=== PATIENT | male | born 1965 | race Caucasian/White ===

== ENCOUNTER 2019-02-24 12:52 | Inpatient (IN) | payer OTHER ==
[2019-02-24 17:16] VITALS: BMI 26.1
--- NOTE | 2019-02-24 18:18 | HP ---
COWS - Scale Resting Pulse: 0= [place] 80 or Below Sweatin=Flushed/Facial Moisture Restless Observation: 1= Difficult to Sit Still Pupil Size: 2= Moderately Dilated (Pupils = 4 mm) Bone or Joint Aches: 1= Mild Discomfort Runny Nose/ Eye Tearin= Nasal Congestion GI Upset > 30mins: 1= Stomach Cramp (w/ slight nausea) Tremor Observation: 4= Gross Tremor/Twitching Yawning Observation: 0= None Anxiety or Irritability: 2=Irritable/Anxious Goose Flesh Skin: 0=Smooth Skin COWS Score: 14 CIWA Score - Admission Criteria OASAS Guidelines: Admission for Medically Managed Detox: Requires at least one of the followin. CIWA greater than 12 2. Seizures within the past 24 hours 3. Delirium tremens within the past 24 hours 4. Hallucinations within the past 24 hours 5. Acute intervention needed for co occurring medical disorder 6. Acute intervention needed for co occurring psychiatric disorder 7. Severe withdrawal that cannot be handled at a lower level of care (continued vomiting, continued diarrhea, abnormal vital signs) requiring intravenous medication and/or fluids 8. Admission ROS [facility] Chief Complaint: Here for heroin withdrawal. Allergies/Adverse Reactions: Allergies Allergy/AdvReac Type Severity Reaction Status Date / Time No Known Allergies Allergy Verified 02/24/19 17:04 History of Present Illness: This is the first admission for this 53 yom who states "I want to stop using heroin. I was trying to do on my own but was unable to." Heroin use since age 11. Stopped in 2010 at which time was using 5-6 bags ( incarcerated). Restarted 6 months ago and states uses 2 bags/day. (nasal). Last used 4 hours ago. Denies alcohol or other drugs. Nicotine use since age 7/10. Currently smokes 1PPD Denies seizures, blackouts, overdoses. PMHx: HIV +; MHHx: Anxious. Denies depression. Denies thoughts of harming self or others. Patient Name: Bryce Hudson Date: 1965 Address: [address] [place] [address] [address] [place] [address] Sex: Male Rx Written Rx Dispensed Drug Quantity Days Supply Prescriber Name 01/25/2019 01/25/2019 oxycodone-acetaminophen 5-325 mg tab 60 30 Rigo Louis MD 12/04/2018 12/08/2018 oxycodone-acetaminophen 5-325 mg tab 60 30 HeribertoRigo MD 10/29/2018 11/05/2018 oxycodone-acetaminophen 5-325 mg tab 60 30 HeribertoRigo MD 10/01/2018 10/02/2018 oxycodone-acetaminophen 5-325 mg tablet 60 30 HeribertoRigo MD 08/26/2018 08/31/2018 oxycodone-acetaminophen 5-325 mg tab 60 30 HeribertoRigo MD 07/29/2018 07/29/2018 oxycodone-acetaminophen 5-325 mg tablet 60 30 HeribertoRigo MD 06/29/2018 07/01/2018 oxycodone-acetaminophen 5-325 mg tablet 60 30 HeribertoRigo MD 05/25/2018 05/28/2018 oxycodone-acetaminophen 5-325 mg tablet 60 5 HeribertoRigo MD 04/24/2018 04/27/2018 oxycodone-acetaminophen 5-325 mg tablet 60 30 HeribertoRigo MD 03/27/2018 03/29/2018 oxycodone-acetaminophen 5-325 mg tablet 60 30 HeribertoRigo MD 02/19/2018 02/26/2018 oxycodone-acetaminophen 5-325 mg tablet 60 30 HeribertoRigo MD Exam Limitations: No Limitations - Ebola screening Have you traveled outside of the country in the last 21 days: No Have you had contact with anyone from an Ebola affected area: No Have you been sick,other than usual withdrawal symptoms: No (Denies recent exposure to measles) Do you have a fever: No - Review of Systems Constitutional: Changes in sleep (Difficulty falling asleep. Not on meds) EENT: reports: Blurred Vision, Nose Congestion Respiratory: reports: No Symptoms reported Cardiac: reports: No Symptoms Reported GI: reports: Abdominal cramping (w/ some nausea) : reports: No Symptoms Reported Musculoskeletal: reports: Back Pain (Chronic LBP x years. No pain at this time.) , Muscle Pain (aches) Integumentary: reports: No Symptoms Reported Neuro: reports: Numbness (Occ (R) arm falls asleep at night) Endocrine: reports: Increased Thirst Hematology: reports: No Symptoms Reported Psychiatric: reports: Judgement Intact, Orientated x3, Agitated, Anxious Patient History - PPD History Previous Implant?: Yes Documented Results: Negative w/proof Implanted On Prior [facility] Admission?: No PPD to be Administered?: Yes - Smoking Cessation Smoking history: Current every day smoker Have you smoked in the past 12 months: Yes Aproximately how many cigarettes per day: 20 Hx Chewing Tobacco Use: Yes Initiated information on smoking cessation: No 'Breaking Loose' booklet given: 02/24/19 - Substance & Tx. History Hx Alcohol Use: No Hx Substance Use: Yes Substance Use Type: Heroin Hx Substance Use Treatment: No - Substances abused Heroin Substance route: Inhalation Frequency: Daily Amount used: 1-2 bags Age of first use: 11 Date of last use: 02/24/19 Admission Physical Exam BHS - Vital Signs Vital Signs: Vital Signs - 24 hr 02/24/19 17:03 Temperature 97.9 F Pulse Rate 77 Respiratory 18 Rate Blood Pressure 120/66 - Physical General Appearance: Yes: Nourished, Sweating, Anxious (Increased facial moisture ) HEENTM: Yes: EOMI, Hearing grossly Normal, Normocephalic, Normal Voice, JOHN ( Pupils = 4 mm), Pharynx Normal Respiratory: Yes: Lungs Clear, Normal Breath Sounds, No Respiratory Distress Neck: Yes: No masses,lesions,Nodules, Supple Breast: Yes: Breast Exam Deferred Cardiology: Yes: Regular Rhythm, S1, S2, Bradycardia (HR: 58) Abdominal: Yes: Non Tender, Flat, Soft, Increased Bowel Sounds Genitourinary: Yes: Within Normal Limits Back: Yes: Normal Inspection Musculoskeletal: Yes: full range of Motion, Gait Steady Extremities: Yes: Normal Capillary Refill, Tremors (gross tremors) Neurological: Yes: vp research II-XII NML intact, Fully Oriented, Alert, Motor Strength 5/5, Normal Mood/Affect Integumentary: Yes: Normal Color, Warm Lymphatic: Yes: Within Normal Limits - Diagnostic (1) Opioid dependence with withdrawal Current Visit: Yes Status: Acute (2) Nicotine dependence, uncomplicated Current Visit: Yes Status: Acute Qualifiers: Nicotine product type: cigarettes Qualified Code(s): F17.210 - Nicotine dependence, cigarettes, uncomplicated (3) HIV (human immunodeficiency virus infection) Current Visit: Yes Status: Chronic Qualifiers: HIV symptom status: unspecified Qualified Code(s): B20 - Human immunodeficiency virus [HIV] disease Cleared for Admission [facility] - Detox or Rehab [facility] Level of Care: Medically Managed Detox Regimen/Protocol: Methadone Claeared for Rehab Admission: No Breathalyzer - Breathalyzer Breathalyzer: 0 Urine Drug Screen - Test Device Lot number: [id number] Expiration date: 11/05/20 - Control Is test valid?: Yes - Results Drug screen NEGATIVE: No Urine drug screen results: FEN-Fentanyl, MOP-Opiates, OXY-Oxycodone Inpatient Rehab Admission - Rehab Decision to Admit Inpatient rehab admission?: No
[2019-02-24] MEDS ORDERED: METHOCARBAMOL 500 MG TABLET PO PRN (21:10)
[2019-02-24] MEDS ORDERED: METHADONE HCL 10 MG TABLET (FOR DETOX USE ONLY) PO ONE ×2 (21:10→23:00)
[2019-02-24] MEDS ORDERED: clonazePAM 0.5 MG TABLET PO PRN (21:10)
[2019-02-24] MEDS ORDERED: PROCHLORPERAZINE MALEATE 5 MG TABLET PO PRN (21:10)
[2019-02-24] MEDS ORDERED: NICOTINE POLACRILEX 2 MG GUM BUC PRN (21:10)
[2019-02-24] MEDS ORDERED: MAGNESIUM CITRATE 300 ML BOTTLE PO PRN (21:10)
[2019-02-24] MEDS ORDERED: cloNIDine HCL 0.1 MG TABLET PO PRN (21:10)
[2019-02-24] MEDS ORDERED: IBUPROFEN 400 MG TABLET (FP) PO PRN (21:10)
[2019-02-24] MEDS ORDERED: ACETAMINOPHEN 325 MG TABLET (FP) PO PRN ×2 (21:10)
[2019-02-24] MEDS ORDERED: MENTHOL/PHENOL 1 EACH UD MM PRN (21:10)
[2019-02-24] MEDS ORDERED: MAG HYDROX/AL HYDROX/SIMETH 30 ML UNIT-DOSE CUP PO PRN (21:10)
[2019-02-24] MEDS ORDERED: MELATONIN 5 MG TABLETS PO PRN (21:10)
[2019-02-24] MEDS ORDERED: MAGNESIUM HYDROX 2400MG/30ML ORAL SUSPENSION 30 ML CUP PO PRN (21:10)
[2019-02-24] MEDS ORDERED: NALOXONE HCL 0.4 MG/ML VIAL IVPUSH PRN (21:10)
[2019-02-24] MEDS ORDERED: BISMUTH SUBSALICYLATE 524 MG/30 ML UD PO PRN (21:10)
[2019-02-24] MEDS ORDERED: guaiFENesin 200 MG/10 ML 10 ML UNIT-DOSE CUPS PO PRN (21:10)
[2019-02-24] MEDS: THIAMINE HCL 100 MG TABLET (FP) PO SCH (22:01)
[2019-02-25] MEDS ORDERED: VARENICLINE TARTRATE 0.5 MG TAB PO SCH ×3 (10:00)
[2019-02-25] MEDS ORDERED: VARENICLINE TARTRATE 0.5 MG PO SCH (10:00)
[2019-02-25] MEDS ORDERED: METHADONE HCL 10 MG TABLET PO ONE (10:00)
[2019-02-25 10:05] LABS: BILIRUBIN,TOTAL 0.3 mg/dL (0.2-1); CALCIUM 8.7 mg/dL (8.5-10.1); CREATININE 1.1 mg/dL (0.55-1.3); POTASSIUM 4.7 mmol/L (3.5-5.1); TOT PROT 6.3 g/dl (6.4-8.2)
[2019-02-25 10:22] LABS: HEMATOCRIT 39.8 % (35.4-49); HEMOGLOBIN 13.4 GM/dL (11.7-16.9); MCH 31.4 pg (25.7-33.7); MCHC 33.8 g/dl (32.0-35.9); MEAN CELL VOLUME 92.9 fl (80-96); PLATELET COUNT 162 K/MM3 (134-434); RBC 4.29 M/mm3 (4.00-5.60); RDW 12.5 % (11.9-15.9); WHITE BLOOD COUNT 5.8 K/mm3 (4.0-10.0)
[2019-02-25] MEDS: NICOTINE 7 MG/24 HOURS TOPICAL PATCH TD SCH (10:31)
[2019-02-25] MEDS: PRENATAL VITAMINS W/ FOLIC ACID TABLET (FP) PO SCH (10:31)
--- NOTE | 2019-02-25 11:25 | PN ---
BHS COWS - Scale Resting Pulse: 0= [place] 80 or Below Sweatin=Flushed/Facial Moisture Restless Observation: 1= Difficult to Sit Still Pupil Size: 0= Normal to Room Light Bone or Joint Aches: 2= Severe Diffuse Aches Runny Nose/ Eye Tearin= Runny Nose/Eyes GI Upset > 30mins: 1= Stomach Cramp Tremor Observation of Outstretched Hands: 2= Slight Tremor Visible Yawning Observation: 2= >3x During Session Anxiety or Irritability: 2=Irritable/Anxious Goose Flesh Skin: 0=Smooth Skin COWS Score: 14 BHS Progress Note (SOAP) Subjective: sweats shakes interrupted sleep body aches restless Objective: 02/25/19 11:24 Vital Signs Temperature 98.8 F 02/25/19 09:14 Pulse Rate 50 L 02/25/19 09:14 Respiratory Rate 18 02/25/19 09:14 Blood Pressure 129/75 02/25/19 09:14 O2 Sat by Pulse Oximetry (%) Laboratory Tests 02/25/19 02/25/19 07:00 07:00 WBC 5.8 RBC 4.29 Hgb 13.4 Hct 39.8 MCV 92.9 MCH 31.4 MCHC 33.8 RDW 12.5 Plt Count 162 MPV 9.0 Sodium 139 Potassium 4.7 Chloride 104 Carbon Dioxide 32 Anion Gap 3 L BUN 16 Creatinine 1.1 Est GFR (CKD-EPI)AfAm 87.13 Est GFR (CKD-EPI)NonAf 75.17 Random Glucose 94 Calcium 8.7 Total Bilirubin 0.3 AST 15 ALT 17 Alkaline Phosphatase 79 Total Protein 6.3 L Albumin 3.0 L aaox3 ambulating no acute distress Assessment: 02/25/19 11:24 withdrawal sx Plan: continue detox increase fluids
[2019-02-25] MEDS: VARENICLINE TARTRATE 0.5 MG PO SCH (11:46)
[2019-02-25] MEDS: PATIENT'S OWN MEDICATION (NON-FORMULARY) (Elviteg/Cob/Emtri/Tenof Alafen 1 TAB) PO SCH (11:46)
[2019-02-25] MEDS: DARUNAVIR ETHANOLATE 800 MG PO SCH (11:46)
--- NOTE | 2019-02-25 13:16 | EKG ---
Test Reason : Blood Pressure : / mmHG Vent. Rate : 048 BPM Atrial Rate : 048 BPM P-R Int : 176 ms QRS Dur : 092 ms QT Int : 404 ms P-R-T Axes : 068 079 045 degrees QTc Int : 360 ms SINUS BRADYCARDIA NONSPECIFIC T WAVE ABNORMALITY ABNORMAL ECG NO PREVIOUS ECGS AVAILABLE Confirmed by JAN HOWE, BRODERICK ([id number]) on 02/25/2019 1:15:44 PM Referred By: Confirmed By:BRODERICK MONTOYA MD
[2019-02-25] MEDS: THIAMINE HCL 100 MG TABLET (FP) PO SCH (22:16)
[2019-02-26] MEDS: DARUNAVIR ETHANOLATE 800 MG PO SCH (07:23)
[2019-02-26] MEDS: PATIENT'S OWN MEDICATION (NON-FORMULARY) (Elviteg/Cob/Emtri/Tenof Alafen 1 TAB) PO SCH (07:23)
[2019-02-26] MEDS ORDERED: METHADONE HCL 5 MG TABLET (FOR DETOX USE ONLY) PO ONE (10:00)
[2019-02-26] MEDS: NICOTINE 7 MG/24 HOURS TOPICAL PATCH TD SCH (10:17)
[2019-02-26] MEDS: VARENICLINE TARTRATE 0.5 MG PO SCH (10:17)
[2019-02-26] MEDS: PRENATAL VITAMINS W/ FOLIC ACID TABLET (FP) PO SCH (10:18)
--- NOTE | 2019-02-26 14:40 | PN ---
BHS COWS - Scale Resting Pulse: 0= [place] 80 or Below Sweatin=Flushed/Facial Moisture Restless Observation: 1= Difficult to Sit Still Pupil Size: 0= Normal to Room Light Bone or Joint Aches: 1= Mild Discomfort Runny Nose/ Eye Tearin= Nasal Congestion GI Upset > 30mins: 0= None Tremor Observation of Outstretched Hands: 1= Tremor [place], Not Seen Yawning Observation: 1= 1-2x During Session Anxiety or Irritability: 2=Irritable/Anxious Goose Flesh Skin: 0=Smooth Skin COWS Score: 9 BHS Progress Note (SOAP) Subjective: sweats mild shakes interrupted sleep irritable Objective: 02/26/19 14:39 Vital Signs Temperature 98.1 F 02/26/19 14:01 Pulse Rate 54 L 02/26/19 14:01 Respiratory Rate 18 02/26/19 14:01 Blood Pressure 132/84 02/26/19 14:01 O2 Sat by Pulse Oximetry (%) Laboratory Tests 02/25/19 02/25/19 02/25/19 07:00 07:00 07:00 WBC 5.8 RBC 4.29 Hgb 13.4 Hct 39.8 MCV 92.9 MCH 31.4 MCHC 33.8 RDW 12.5 Plt Count 162 MPV 9.0 Sodium 139 Potassium 4.7 Chloride 104 Carbon Dioxide 32 Anion Gap 3 L BUN 16 Creatinine 1.1 Est GFR (CKD-EPI)AfAm 87.13 Est GFR (CKD-EPI)NonAf 75.17 Random Glucose 94 Calcium 8.7 Total Bilirubin 0.3 AST 15 ALT 17 Alkaline Phosphatase 79 Total Protein 6.3 L Albumin 3.0 L RPR Titer Nonreactive aaox3 ambulating no acute distress labs noted Assessment: 02/26/19 14:39 withdrawal sx Plan: continue detox increase fluids
[2019-02-26] MEDS: THIAMINE HCL 100 MG TABLET (FP) PO SCH (22:39)
[2019-02-27] MEDS ORDERED: METHADONE HCL 10 MG TABLET (FOR DETOX USE ONLY) PO ONE (10:00)
[2019-02-27] MEDS: PATIENT'S OWN MEDICATION (NON-FORMULARY) (Elviteg/Cob/Emtri/Tenof Alafen 1 TAB) PO SCH (10:34)
[2019-02-27] MEDS: VARENICLINE TARTRATE 0.5 MG PO SCH (10:34)
[2019-02-27] MEDS: DARUNAVIR ETHANOLATE 800 MG PO SCH (10:34)
[2019-02-27] MEDS: PRENATAL VITAMINS W/ FOLIC ACID TABLET (FP) PO SCH (10:34)
[2019-02-27] MEDS: NICOTINE 7 MG/24 HOURS TOPICAL PATCH TD SCH (10:35)
--- NOTE | 2019-02-27 11:39 | PN ---
BHS COWS - Scale Resting Pulse: 0= [place] 80 or Below Sweatin= Chills/Flushing Restless Observation: 1= Difficult to Sit Still Pupil Size: 0= Normal to Room Light Bone or Joint Aches: 2= Severe Diffuse Aches Runny Nose/ Eye Tearin= None GI Upset > 30mins: 0= None Tremor Observation of Outstretched Hands: 2= Slight Tremor Visible Yawning Observation: 1= 1-2x During Session Anxiety or Irritability: 1=Feels Anxious/Irritable Goose Flesh Skin: 0=Smooth Skin COWS Score: 8 BHS Progress Note (SOAP) Subjective: c/o sweats, headache, interrupted sleep, and anxiety. Objective: 02/27/19 11:39 Vital Signs 02/27/19 02/27/19 08:32 09:18 Temperature 97.3 F L 97.9 F Pulse Rate 46 L 52 L Respiratory 18 18 Rate Blood Pressure 140/72 116/62 Lab Results WBC 5.8 K/mm3 (4.0-10.0) 02/25/19 07:00 RBC 4.29 M/mm3 (4.00-5.60) 02/25/19 07:00 Hgb 13.4 GM/dL (11.7-16.9) 02/25/19 07:00 Hct 39.8 % (35.4-49) 02/25/19 07:00 MCV 92.9 fl (80-96) 02/25/19 07:00 MCHC 33.8 g/dl (32.0-35.9) 02/25/19 07:00 RDW 12.5 % (11.9-15.9) 02/25/19 07:00 Plt Count 162 K/MM3 (134-434) 02/25/19 07:00 Sodium 139 mmol/L (136-145) 02/25/19 07:00 Potassium 4.7 mmol/L (3.5-5.1) 02/25/19 07:00 Chloride 104 mmol/L (98-107) 02/25/19 07:00 Carbon Dioxide 32 mmol/L (21-32) 02/25/19 07:00 Anion Gap 3 MMOL/L (8-16) L 02/25/19 07:00 BUN 16 mg/dL (7-18) 02/25/19 07:00 Creatinine 1.1 mg/dL (0.55-1.3) 02/25/19 07:00 Random Glucose 94 mg/dL (74-106) 02/25/19 07:00 Calcium 8.7 mg/dL (8.5-10.1) 02/25/19 07:00 Labs noted. Assessment: 02/27/19 11:39 AOX3, in no acute distress full rom, ambulating in the unit withdrawal symptoms. Plan: continue detox increase fluids
[2019-02-27 13:56] VITALS: BP 133/66; PULSE 50; TEMP 97.5
--- NOTE | 2019-02-27 14:41 | DS ---
[facility] Detox Discharge Summary Admission Date: 02/24/19 Discharge Date: 02/27/19 (Discharged AMA) - History Present History: Opioid Dependence Additional Comments: Pt left AMA. Pt did not complete detox protocol. Pt states he wants to go and take care of something. Attempt to let pt stay and continue with the detox protocol failed. Pt states he will follow up with an outpatient CD program. Pt is alert and oriented x3 and in no respiratory distress. Pt is encouraged to follow-up with an outpatient CD program and also follow-up with his PMD. Pt verbalized understanding. Pertinent Past History: H/O HIV+, opiates, oxycodone, and fentanyl use disorder. - Physical Exam Results Vital Signs: Vital Signs Temperature 97.5 F L 02/27/19 13:55 Pulse Rate 50 L 02/27/19 13:55 Respiratory Rate 18 02/27/19 13:55 Blood Pressure 133/66 02/27/19 13:55 O2 Sat by Pulse Oximetry (%) Vital Signs - 24 hr 02/26/19 02/26/19 02/27/19 17:46 21:11 00:30 Temperature 98.3 F 98.2 F Pulse Rate 52 L 47 L Respiratory 20 16 18 Rate Blood Pressure 136/84 133/71 02/27/19 02/27/19 02/27/19 08:32 09:18 13:55 Temperature 97.3 F L 97.9 F 97.5 F L Pulse Rate 46 L 52 L 50 L Respiratory 18 18 18 Rate Blood Pressure 140/72 116/62 133/66 Laboratory Last Values WBC 5.8 K/mm3 (4.0-10.0) 02/25/19 07:00 RBC 4.29 M/mm3 (4.00-5.60) 02/25/19 07:00 Hgb 13.4 GM/dL (11.7-16.9) 02/25/19 07:00 Hct 39.8 % (35.4-49) 02/25/19 07:00 MCV 92.9 fl (80-96) 02/25/19 07:00 MCH 31.4 pg (25.7-33.7) 02/25/19 07:00 MCHC 33.8 g/dl (32.0-35.9) 02/25/19 07:00 RDW 12.5 % (11.9-15.9) 02/25/19 07:00 Plt Count 162 K/MM3 (134-434) 02/25/19 07:00 MPV 9.0 fl (7.5-11.1) 02/25/19 07:00 Sodium 139 mmol/L (136-145) 02/25/19 07:00 Potassium 4.7 mmol/L (3.5-5.1) 02/25/19 07:00 Chloride 104 mmol/L (98-107) 02/25/19 07:00 Carbon Dioxide 32 mmol/L (21-32) 02/25/19 07:00 Anion Gap 3 MMOL/L (8-16) L 02/25/19 07:00 BUN 16 mg/dL (7-18) 02/25/19 07:00 Creatinine 1.1 mg/dL (0.55-1.3) 02/25/19 07:00 Est GFR (CKD-EPI)AfAm 87.13 02/25/19 07:00 Est GFR (CKD-EPI)NonAf 75.17 02/25/19 07:00 Random Glucose 94 mg/dL (74-106) 02/25/19 07:00 Calcium 8.7 mg/dL (8.5-10.1) 02/25/19 07:00 Total Bilirubin 0.3 mg/dL (0.2-1) 02/25/19 07:00 AST 15 U/L (15-37) 02/25/19 07:00 ALT 17 U/L (13-61) 02/25/19 07:00 Alkaline Phosphatase 79 U/L (45-117) 02/25/19 07:00 Total Protein 6.3 g/dl (6.4-8.2) L 02/25/19 07:00 Albumin 3.0 g/dl (3.4-5.0) L 02/25/19 07:00 RPR Titer Nonreactive (NONREACTIVE) 02/25/19 07:00 Labs noted. Pertinent Admission Physical Exam Findings: withdrawal symptoms. - Treatment Hospital Course: Detox Protocol Followed - Medication Discharge Medications: Ambulatory Orders Darunavir Ethanolate [Prezista] 800 mg PO DAILY 02/24/19 Elviteg/Cob/Emtri/Tenof Alafen [Genvoya (Non-Formulary)] 1 tab PO DAILY Varenicline Tartrate [Chantix] 0.5 mg PO DAILY 02/24/19 - Diagnosis (1) Nicotine dependence, uncomplicated Current Visit: Yes Status: Acute Qualifiers: Nicotine product type: cigarettes Qualified Code(s): F17.210 - Nicotine dependence, cigarettes, uncomplicated (2) Opioid dependence with withdrawal Current Visit: Yes Status: Acute (3) HIV (human immunodeficiency virus infection) Current Visit: Yes Status: Chronic Qualifiers: HIV symptom status: unspecified Qualified Code(s): B20 - Human immunodeficiency virus [HIV] disease - AMA Did Patient Leave Against Medical Advice: Yes
[2019-02-28] MEDS ORDERED: METHADONE HCL 5 MG TABLET (FOR DETOX USE ONLY) PO ONE (06:00)
[2019-02-28] MEDS ORDERED: VARENICLINE TARTRATE 0.5 MG PO SCH (10:00)
[2019-02-28] MEDS ORDERED: VARENICLINE TARTRATE 0.5 MG TAB PO SCH (10:00)
[2019-03-01] MEDS ORDERED: VARENICLINE TARTRATE 0.5 MG TAB PO SCH (10:00)
[2019-03-04] MEDS ORDERED: VARENICLINE TARTRATE 1 MG PO SCH ×2 (10:00→22:00)
[2019-03-04] MEDS ORDERED: VARENICLINE TARTRATE 1 MG TAB PO SCH (22:00)
== END 2019-02-27 14:36 | disposition left against medical advice (07) | DRG 770 ==
LOC: YASAS 12:52 → Y6N 19:09
PROVIDERS: ADMIT Surgery; ATTEND Surgery
PROC: HZ2ZZZZ Detoxification Services for Substance Abuse Treatment (ICD-10-PCS; principal; 2019-02-24)
DX: F11.23 Opioid dependence with withdrawal (principal); F17.210 Nicotine dependence, cigarettes, uncomplicated; Z21 Asymptomatic human immunodeficiency virus [HIV] infection status; R00.1 Bradycardia, unspecified
CPT/HCPCS: 36415; 80053; 85027; 86593; 93005; 93010

== ENCOUNTER 2019-03-25 09:38 | Inpatient (IN) | payer OTHER ==
[2019-03-25 11:48] VITALS: BMI 24.8
[2019-03-25] MEDS ORDERED: MAGNESIUM CITRATE 300 ML BOTTLE PO PRN (14:42)
[2019-03-25] MEDS ORDERED: NICOTINE POLACRILEX 4 MG GUM BUC PRN (14:42)
[2019-03-25] MEDS ORDERED: MAG HYDROX/AL HYDROX/SIMETH 30 ML UNIT-DOSE CUP PO PRN (14:42)
[2019-03-25] MEDS ORDERED: IBUPROFEN 400 MG TABLET (FP) PO PRN (14:42)
[2019-03-25] MEDS ORDERED: ACETAMINOPHEN 325 MG TABLET (FP) PO PRN ×2 (14:42)
[2019-03-25] MEDS ORDERED: cloNIDine HCL 0.1 MG TABLET PO PRN (14:42)
[2019-03-25] MEDS ORDERED: MELATONIN 5 MG TABLETS PO PRN (14:42)
[2019-03-25] MEDS ORDERED: ONDANSETRON *ODT* 4 MG TABLET SL PRN (14:42)
[2019-03-25] MEDS ORDERED: MAGNESIUM HYDROX 2400MG/30ML ORAL SUSPENSION 30 ML CUP PO PRN (14:42)
[2019-03-25] MEDS ORDERED: P-EPHED 60MG/TRIPROLIDI 2.5MG TABLET PO PRN (14:42)
[2019-03-25] MEDS ORDERED: hydrOXYzine PAMOATE 25 MG CAPSULE (FP) PO PRN (14:42)
[2019-03-25] MEDS ORDERED: MENTHOL/PHENOL 1 EACH UD MM PRN (14:42)
[2019-03-25] MEDS ORDERED: BISMUTH SUBSALICYLATE 524 MG/30 ML UD PO PRN (14:42)
--- NOTE | 2019-03-25 14:47 | HP ---
COWS - Scale Resting Pulse: 0= [place] 80 or Below Sweatin=Flushed/Facial Moisture Restless Observation: 1= Difficult to Sit Still Pupil Size: 0= Normal to Room Light Bone or Joint Aches: 1= Mild Discomfort Runny Nose/ Eye Tearin= Runny Nose/Eyes GI Upset > 30mins: 0= None Tremor Observation: 2= Slight Tremor Visible Yawning Observation: 1= 1-2x During Session Anxiety or Irritability: 2=Irritable/Anxious Goose Flesh Skin: 0=Smooth Skin COWS Score: 11 CIWA Score - Admission Criteria OASAS Guidelines: Admission for Medically Managed Detox: Requires at least one of the followin. CIWA greater than 12 2. Seizures within the past 24 hours 3. Delirium tremens within the past 24 hours 4. Hallucinations within the past 24 hours 5. Acute intervention needed for co occurring medical disorder 6. Acute intervention needed for co occurring psychiatric disorder 7. Severe withdrawal that cannot be handled at a lower level of care (continued vomiting, continued diarrhea, abnormal vital signs) requiring intravenous medication and/or fluids 8. Admission ROS [facility] Chief Complaint: I want to sober up and stay clean. Allergies/Adverse Reactions: Allergies Allergy/AdvReac Type Severity Reaction Status Date / Time No Known Allergies Allergy Verified 03/25/19 11:43 History of Present Illness: pt is a 53yrold male with a history of opioid dependence seeking detox for treatment. Exam Limitations: No Limitations - Ebola screening Have you traveled outside of the country in the last 21 days: No Have you had contact with anyone from an Ebola affected area: No Have you been sick,other than usual withdrawal symptoms: No Do you have a fever: No - Review of Systems Constitutional: Chills, Diaphoresis, Night Sweats EENT: reports: Nose Congestion Respiratory: reports: No Symptoms reported Cardiac: reports: No Symptoms Reported GI: reports: Constipated, Poor Appetite, Poor Fluid Intake : reports: No Symptoms Reported Musculoskeletal: reports: Back Pain, Muscle Pain, Other (right pinki deformaty.) Integumentary: reports: Flushing, Sweating Neuro: reports: Tingling, Tremors Endocrine: reports: Excessive Sweating, Flushing, Intolerance to Cold, Intolerance to Heat Hematology: reports: No Symptoms Reported Psychiatric: reports: Judgement Intact, Mood/Affect Appropiate, Orientated x3, Agitated, Anxious Other Systems: Reviewed and Negative Patient History - Patient Medical History Hx Anemia: No Hx Asthma: No Hx Chronic Obstructive Pulmonary Disease (COPD): No Hx Cancer: No Hx Cardiac Disorders: No Hx Congestive Heart Failure: No Hx Hypertension: No Hx Hypercholesterolemia: No Hx Pacemaker: No HX Cerebrovascular Accident: No Hx Seizures: No Hx Dementia: No Hx Diabetes: No Hx Gastrointestinal Disorders: No Hx Liver Disease: No Hx Genitourinary Disorders: No Hx Sexually Transmitted Disorders: No Hx Renal Disease (ESRD): No Hx Thyroid Disease: No Hx Human Immunodeficiency Virus (HIV): Yes (HIV non-compliant) Hx Hepatitis C: Yes (treated) Hx Depression: Yes Hx Suicide Attempt: No (pt denies) Hx Bipolar Disorder: No Hx Schizophrenia: No Other Medical History: anxiety - Patient Surgical History Past Surgical History: No Hx Neurologic Surgery: No Hx Cataract Extraction: No Hx Cardiac Surgery: No Hx Lung Surgery: No Hx Breast Surgery: No Hx Breast Biopsy: No Hx Abdominal Surgery: No Hx Appendectomy: No Hx Cholecystectomy: No Hx Genitourinary Surgery: No Hx Section: No Hx Orthopedic Surgery: No Anesthesia Reaction: No - PPD History Previous Implant?: Yes Documented Results: Negative w/proof Date: 02/26/19 PPD to be Administered?: No - Reproductive History Patient is a Female of Child Bearing Age (11 -55 yrs old): No - Smoking Cessation Smoking history: Current every day smoker Have you smoked in the past 12 months: Yes Aproximately how many cigarettes per day: 20 Hx Chewing Tobacco Use: No Initiated information on smoking cessation: Yes 'Breaking Loose' booklet given: 03/25/19 - Substance & Tx. History Hx Alcohol Use: No Hx Substance Use: Yes Substance Use Type: Heroin Hx Substance Use Treatment: Yes (last detox [facility] 02/2019) - Substances abused Heroin Substance route: Inhalation Frequency: Daily Amount used: 4 bags Age of first use: 13 Date of last use: 03/24/19 Family Disease History - Family Disease History Family History: Denies Admission Physical Exam BHS - Vital Signs Vital Signs: Vital Signs - 24 hr 03/25/19 11:34 Temperature 97.5 F L Pulse Rate 52 L Respiratory 16 Rate Blood Pressure 116/71 - Physical General Appearance: Yes: Appropriately Dressed, Moderate Distress, Tremorous, Irritable, Sweating, Anxious HEENTM: Yes: Hearing grossly Normal, Normal Voice, Nasal Congestion, Rhinorrhea Respiratory: Yes: Lungs Clear, Normal Breath Sounds, No Respiratory Distress Neck: Yes: No masses,lesions,Nodules Breast: Yes: Within Normal Limits Cardiology: Yes: Regular Rhythm, Regular Rate, S1, S2 Abdominal: Yes: Normal Bowel Sounds, Non Tender, Soft Genitourinary: Yes: Within Normal Limits Back: Yes: Normal Inspection Musculoskeletal: Yes: full range of Motion, Back pain Extremities: Yes: Normal Capillary Refill, Normal Inspection, Non-Tender, Tremors Neurological: Yes: Fully Oriented, Normal Response Integumentary: Yes: Normal Color Lymphatic: Yes: Within Normal Limits - Diagnostic (1) Nicotine dependence, uncomplicated Current Visit: Yes Status: Chronic Qualifiers: Nicotine product type: cigarettes Qualified Code(s): F17.210 - Nicotine dependence, cigarettes, uncomplicated (2) Opioid dependence with withdrawal Current Visit: Yes Status: Acute (3) HIV (human immunodeficiency virus infection) Current Visit: Yes Status: Chronic Qualifiers: HIV symptom status: unspecified Qualified Code(s): B20 - Human immunodeficiency virus [HIV] disease Cleared for Admission [facility] - Detox or Rehab [facility] Level of Care: Medically Managed Detox Regimen/Protocol: Methadone Breathalyzer - Breathalyzer Breathalyzer: 0 Urine Drug Screen - Test Device Lot number: [id number] Expiration date: 12/03/20 - Control Is test valid?: Yes - Results Drug screen NEGATIVE: No Urine drug screen results: MOP-Opiates Inpatient Rehab Admission - Rehab Decision to Admit Inpatient rehab admission?: No
--- NOTE | 2019-03-25 15:13 | PN ---
[facility] Progress Note Note: pt states he has been HIV infected for a long time now and has been taking antiviral medication "off and on"". Pt states he is not currently taking any medication and is not interested in taking any meds.
[2019-03-25] MEDS: clonazePAM 0.5 MG TABLET PO PRN (15:43)
[2019-03-25] MEDS: BACLOFEN 10 MG TABLET (FP) PO PRN (15:43)
[2019-03-25] MEDS ORDERED: METHADONE HCL 10 MG TABLET (FOR DETOX USE ONLY) PO ONE ×3 (16:15→23:00)
[2019-03-25] MEDS: THIAMINE HCL 100 MG TABLET (FP) PO SCH (22:12)
[2019-03-26] MEDS ORDERED: METHADONE HCL 5 MG TABLET (FOR DETOX USE ONLY) PO ONE (10:00)
[2019-03-26] MEDS ORDERED: METHADONE HCL 10 MG TABLET (FOR DETOX USE ONLY) PO ONE (10:00)
[2019-03-26] MEDS: NICOTINE 21 MG/24 HOURS TOPICAL PATCH TD SCH (11:10)
[2019-03-26] MEDS: PRENATAL VITAMINS W/ FOLIC ACID TABLET (FP) PO SCH (11:10)
--- NOTE | 2019-03-26 11:28 | CONSULT ---
[facility] Psychiatric Consult - Data Date of interview: 03/26/19 Admission source: [facility] Identifying data: Patient is a 53 year old male, father of one, unemployed, domiciled, and is supported by [employer]. This is one of multiple admissions for patient. Patient admitted to for opiate dependence. Substance Abuse History: Smoking Cessation. Smoking history: Current every day smoker. Have you smoked in the past 12 months: Yes. Aproximately how many cigarettes per day: 20. Hx Chewing Tobacco Use: No. Initiated information on smoking cessation: Yes. 'Breaking Loose' booklet given: 03/25/19. - Substance & Tx. History. Hx Alcohol Use: No. Hx Substance Use: Yes. Substance Use Type : Heroin. Hx Substance Use Treatment: Yes (last detox [facility] 02/2019). - Substances abused. Heroin. Substance route: Inhalation. Frequency: Daily. Amount used: 4 bags. Age of first use: 13. Date of last use: 03/24/19 Medical History: denies. Psychiatric History: Patient denies h/o psychiatric hospitalization, outpatient care, and suicide attempt. At present patient reports feeling sad due to his drug use. Patient is also experiencing worsening anxiety and difficulty sleeping. Physical/Sexual Abuse/Trauma History: denies. Mental Status Exam - Mental Status Exam Alert and Oriented to: Time, Place, Person Cognitive Function: Good Patient Appearance: Well Groomed Mood: Sad Affect: Mood Congruent Patient Behavior: Cooperative Speech Pattern: Appropriate Voice Loudness: Normal Thought Process: Goal Oriented Thought Disorder: Not Present Hallucinations: Denies Suicidal Ideation: Denies Homicidal Ideation: Denies Insight/Judgement: Poor Sleep: Poorly Appetite: Fair Muscle strength/Tone: Normal Gait/Station: Normal Psychiatric Findings - Problem List (Bond 1, 2,3) (1) Substance induced mood disorder Current Visit: Yes Status: Acute (2) Opioid dependence with withdrawal Current Visit: Yes Status: Acute (3) Nicotine dependence, uncomplicated Current Visit: Yes Status: Chronic Qualifiers: Nicotine product type: cigarettes Qualified Code(s): F17.210 - Nicotine dependence, cigarettes, uncomplicated (4) Substance-induced sleep disorder Current Visit: Yes Status: Acute - Initial Treatment Plan Initial Treatment Plan: Psychoeducation provided. Detoxification in progress. Will d/c melatonin 5mg and vistaril 25mg q6h. Will order Melatonin 10mg + Vistaril 50mg q6h. Benefits and side effects discussed. Verbal consent given.
[2019-03-26] MEDS ORDERED: hydrOXYzine PAMOATE 50 MG CAPSULE (FP) PO PRN (11:31)
[2019-03-26 11:46] LABS: HEMATOCRIT 44.2 % (35.4-49); HEMOGLOBIN 14.9 GM/dL (11.7-16.9); MCH 31.5 pg (25.7-33.7); MCHC 33.8 g/dl (32.0-35.9); MEAN CELL VOLUME 93.2 fl (80-96); MEAN PLT VOLUME 9.1 fl (7.5-11.1); PLATELET COUNT 158 K/MM3 (134-434); RBC 4.74 M/mm3 (4.00-5.60); RDW 12.9 % (11.9-15.9); WHITE BLOOD COUNT 5.3 K/mm3 (4.0-10.0)
[2019-03-26 12:11] LABS: ALBUMIN 3.4 g/dl (3.4-5.0); BILIRUBIN,TOTAL 0.2 mg/dL (0.2-1); BLOOD UREA NITROGEN 21.8 mg/dL (7-18); CALCIUM 9.2 mg/dL (8.5-10.1); CREATININE 1.2 mg/dL (0.55-1.3); POTASSIUM 4.6 mmol/L (3.5-5.1); TOT PROT 7.1 g/dl (6.4-8.2)
--- NOTE | 2019-03-26 13:02 | PN ---
BHS COWS - Scale Resting Pulse: 0= [place] 80 or Below Sweatin=Flushed/Facial Moisture Restless Observation: 1= Difficult to Sit Still Pupil Size: 0= Normal to Room Light Bone or Joint Aches: 2= Severe Diffuse Aches Runny Nose/ Eye Tearin= Nasal Congestion GI Upset > 30mins: 0= None Tremor Observation of Outstretched Hands: 1= Tremor [place], Not Seen Yawning Observation: 1= 1-2x During Session Anxiety or Irritability: 2=Irritable/Anxious Goose Flesh Skin: 0=Smooth Skin COWS Score: 10 BHS Progress Note (SOAP) Subjective: tired sweats chills body aches agitation low appetite Objective: 03/26/19 12:59 Vital Signs Temperature 97.7 F 03/26/19 10:00 Pulse Rate 47 L 03/26/19 10:00 Respiratory Rate 16 03/26/19 10:00 Blood Pressure 132/86 03/26/19 10:00 O2 Sat by Pulse Oximetry (%) Laboratory Tests 03/26/19 03/26/19 07:00 07:00 WBC 5.3 RBC 4.74 Hgb 14.9 Hct 44.2 MCV 93.2 MCH 31.5 MCHC 33.8 RDW 12.9 Plt Count 158 MPV 9.1 Sodium 140 Potassium 4.6 Chloride 105 Carbon Dioxide 30 Anion Gap 5 L BUN 21.8 H Creatinine 1.2 Est GFR (CKD-EPI)AfAm 78.43 Est GFR (CKD-EPI)NonAf 67.67 Random Glucose 90 Calcium 9.2 Total Bilirubin 0.2 AST 20 ALT 24 Alkaline Phosphatase 94 Total Protein 7.1 Albumin 3.4 aaox3 ambulating no acute distress Assessment: 03/26/19 13:00 withdrawal sx Plan: continue detox increase fluids
[2019-03-26] MEDS: clonazePAM 0.5 MG TABLET PO PRN ×2 (15:10→22:26)
[2019-03-26] MEDS: BACLOFEN 10 MG TABLET (FP) PO PRN (15:10)
[2019-03-26] MEDS ORDERED: MELATONIN 5 MG TABLETS PO PRN (21:00)
[2019-03-26] MEDS: THIAMINE HCL 100 MG TABLET (FP) PO SCH (22:27)
[2019-03-27] MEDS: PRENATAL VITAMINS W/ FOLIC ACID TABLET (FP) PO SCH (09:27)
[2019-03-27] MEDS: NICOTINE 21 MG/24 HOURS TOPICAL PATCH TD SCH (09:27)
[2019-03-27] MEDS ORDERED: METHADONE HCL 10 MG TABLET (FOR DETOX USE ONLY) PO ONE ×2 (10:00)
--- NOTE | 2019-03-27 14:50 | PN ---
BHS COWS - Scale Resting Pulse: 0= [place] 80 or Below Sweatin= No chills or Flushing Restless Observation: 1= Difficult to Sit Still Pupil Size: 0= Normal to Room Light Bone or Joint Aches: 1= Mild Discomfort Runny Nose/ Eye Tearin= None GI Upset > 30mins: 0= None Tremor Observation of Outstretched Hands: 0= None Yawning Observation: 0= None Anxiety or Irritability: 2=Irritable/Anxious Goose Flesh Skin: 0=Smooth Skin COWS Score: 4 BHS Progress Note (SOAP) Subjective: PATIENT CONTINUES WITH DETOX. FOR D/C IN AM. C/O MILD ANXIETY, BODY ACHES AND RESTLESSNESS. Objective: 03/27/19 14:48 Laboratory Tests 03/26/19 03/26/19 03/26/19 07:00 07:00 07:00 WBC 5.3 RBC 4.74 Hgb 14.9 Hct 44.2 MCV 93.2 MCH 31.5 MCHC 33.8 RDW 12.9 Plt Count 158 MPV 9.1 Sodium 140 Potassium 4.6 Chloride 105 Carbon Dioxide 30 Anion Gap 5 L BUN 21.8 H Creatinine 1.2 Est GFR (CKD-EPI)AfAm 78.43 Est GFR (CKD-EPI)NonAf 67.67 Random Glucose 90 Calcium 9.2 Total Bilirubin 0.2 AST 20 ALT 24 Alkaline Phosphatase 94 Total Protein 7.1 Albumin 3.4 RPR Titer Nonreactive Vital Signs Temperature 97.3 F L 03/27/19 14:41 Pulse Rate 59 L 03/27/19 14:41 Respiratory Rate 16 03/27/19 14:41 Blood Pressure 141/83 03/27/19 14:41 O2 Sat by Pulse Oximetry (%) PE: ALERT AND ORIENTED X 3 SKIN WARM AND DRY +PERRLA, EOMS INTACT BL EXT NO TREMORS, AMB AD TERE MILD ANXIETY Assessment: 03/27/19 14:49 WITHDRAWAL SX Plan: CONTINUE DETOX FOR D/C IN AM
[2019-03-27] MEDS: clonazePAM 0.5 MG TABLET PO PRN (17:27)
[2019-03-27] MEDS: THIAMINE HCL 100 MG TABLET (FP) PO SCH (22:52)
[2019-03-28] MEDS ORDERED: METHADONE HCL 5 MG TABLET (FOR DETOX USE ONLY) PO ONE (06:00)
[2019-03-28 07:58] VITALS: BP 140/85; PULSE 57; TEMP 97
[2019-03-28] MEDS ORDERED: METHADONE HCL 10 MG TABLET (FOR DETOX USE ONLY) PO ONE (10:00)
--- NOTE | 2019-03-28 14:09 | DS ---
[facility] Detox Discharge Summary Admission Date: 03/25/19 Discharge Date: 03/28/19 - History Present History: Opioid Dependence Additional Comments: Patient completed detox and was discharged safely Pertinent Past History: Opioid dependence HIV HCV Depression Anxiety Nicotine dependence - Physical Exam Results Vital Signs: Vital Signs Temperature 97 F L 03/28/19 07:57 Pulse Rate 57 L 03/28/19 07:57 Respiratory Rate 18 03/28/19 07:57 Blood Pressure 140/85 03/28/19 07:57 O2 Sat by Pulse Oximetry (%) Elevated b/p noted: denies htn, follow up with PCP for management Pertinent Admission Physical Exam Findings: Withdrawal symptoms Laboratory Tests 03/26/19 03/26/19 03/26/19 07:00 07:00 07:00 WBC 5.3 RBC 4.74 Hgb 14.9 Hct 44.2 MCV 93.2 MCH 31.5 MCHC 33.8 RDW 12.9 Plt Count 158 MPV 9.1 Sodium 140 Potassium 4.6 Chloride 105 Carbon Dioxide 30 Anion Gap 5 L BUN 21.8 H Creatinine 1.2 Est GFR (CKD-EPI)AfAm 78.43 Est GFR (CKD-EPI)NonAf 67.67 Random Glucose 90 Calcium 9.2 Total Bilirubin 0.2 AST 20 ALT 24 Alkaline Phosphatase 94 Total Protein 7.1 Albumin 3.4 RPR Titer Nonreactive Labs reviewed - Treatment Hospital Course: Detox Protocol Followed, Detoxed Safely, Responded well, Discharged Condition Good - Diagnosis (1) Hepatitis C carrier Status: Chronic (2) Depression Status: Chronic (3) Anxiety Status: Chronic (4) Opioid dependence with withdrawal Status: Acute (5) HIV (human immunodeficiency virus infection) Status: Chronic Qualifiers: HIV symptom status: unspecified Qualified Code(s): B20 - Human immunodeficiency virus [HIV] disease (6) Nicotine dependence, uncomplicated Status: Chronic Qualifiers: Nicotine product type: cigarettes Qualified Code(s): F17.210 - Nicotine dependence, cigarettes, uncomplicated (7) Elevated blood pressure reading without diagnosis of hypertension Status: Acute - AMA Did Patient Leave Against Medical Advice: No (Follow up with PCP within 1-2 weeks)
[2019-03-29] MEDS ORDERED: METHADONE HCL 5 MG TABLET (FOR DETOX USE ONLY) PO ONE (06:00)
== END 2019-03-28 09:03 | disposition home or self-care (01) | DRG 773 ==
LOC: YASAS 09:38 → Y6N 15:08
PROVIDERS: ADMIT Surgery; ATTEND Surgery
PROC: HZ2ZZZZ Detoxification Services for Substance Abuse Treatment (ICD-10-PCS; principal; 2019-03-25)
DX: F11.23 Opioid dependence with withdrawal (principal); F17.210 Nicotine dependence, cigarettes, uncomplicated; F41.9 Anxiety disorder, unspecified; F19.24 Other psychoactive substance dependence with psychoactive substance-induced mood disorder; F19.282 Other psychoactive substance dependence with psychoactive substance-induced sleep disorder; F32.9 Major depressive disorder, single episode, unspecified; Z21 Asymptomatic human immunodeficiency virus [HIV] infection status; R03.0 Elevated blood-pressure reading, without diagnosis of hypertension; B18.2 Chronic viral hepatitis C
CPT/HCPCS: 36415; 80053; 85027; 86593; J0475

== ENCOUNTER 2019-05-30 14:52 | Inpatient (IN) | payer OTHER ==
[2019-05-30 15:12] VITALS: BMI 25.2
--- NOTE | 2019-05-30 16:06 | HP ---
COWS - Scale Resting Pulse: 0= [place] 80 or Below Sweatin= Chills/Flushing Restless Observation: 1= Difficult to Sit Still Pupil Size: 2= Moderately Dilated Bone or Joint Aches: 2= Severe Diffuse Aches Runny Nose/ Eye Tearin= Nasal Congestion GI Upset > 30mins: 2= Nausea/Diarrhea Tremor Observation: 2= Slight Tremor Visible Yawning Observation: 1= 1-2x During Session Anxiety or Irritability: 2=Irritable/Anxious Goose Flesh Skin: 0=Smooth Skin COWS Score: 14 CIWA Score Nausea/Vomitin Muscle Tremors: 3 Anxiety: 3 Agitation: 3 Paroxysmal Sweats: 2 Orientation: 0-Oriented Tacttile Disturbances: 0-None Auditory Disturbances: 0-None Visual Disturbances: 1-Very Mild Sensitivity Headache: 2-Mild CIWA-Ar Total Score: 16 - Admission Criteria OASAS Guidelines: Admission for Medically Managed Detox: Requires at least one of the followin. CIWA greater than 12 2. Seizures within the past 24 hours 3. Delirium tremens within the past 24 hours 4. Hallucinations within the past 24 hours 5. Acute intervention needed for co occurring medical disorder 6. Acute intervention needed for co occurring psychiatric disorder 7. Severe withdrawal that cannot be handled at a lower level of care (continued vomiting, continued diarrhea, abnormal vital signs) requiring intravenous medication and/or fluids 8. Patient presents the following: CIWA greater than 12, Acute intervention needed for co-occurring med or psych disorder Admission Criteria Met: Admission criteria met Admission ROS [facility] Chief Complaint: IM TIRED Allergies/Adverse Reactions: Allergies Allergy/AdvReac Type Severity Reaction Status Date / Time No Known Allergies Allergy Verified 05/30/19 15:06 History of Present Illness: 38 Y HO OPIATE USE RECENT 7 Y ABSTINENT RELAPSED 6 MOS AGO USING 5-7 BAGS DAILY ETOH 3-4 BEERS DAILY FEELS USE IS MOST IN PERSONAL HX - Ebola screening Have you traveled outside of the country in the last 21 days: No (N) Have you had contact with anyone from an Ebola affected area: No Do you have a fever: No - Review of Systems Constitutional: Unexplained wgt Loss EENT: reports: Nose Congestion Respiratory: reports: No Symptoms reported Cardiac: reports: No Symptoms Reported GI: reports: Abdominal cramping : reports: No Symptoms Reported Musculoskeletal: reports: Muscle Pain Integumentary: reports: No Symptoms Reported Neuro: reports: Headache Endocrine: reports: No Symptoms Reported Hematology: reports: No Symptoms Reported Psychiatric: reports: Mood/Affect Appropiate, Orientated x3, Anxious Patient History - Patient Medical History Hx Anemia: No Hx Asthma: No Hx Chronic Obstructive Pulmonary Disease (COPD): No Hx Cancer: No Hx Cardiac Disorders: No Hx Congestive Heart Failure: No Hx Hypertension: No Hx Hypercholesterolemia: No Hx Pacemaker: No HX Cerebrovascular Accident: No Hx Seizures: No Hx Dementia: No Hx Diabetes: No Hx Gastrointestinal Disorders: No Hx Liver Disease: No Hx Genitourinary Disorders: No Hx Sexually Transmitted Disorders: Yes (HIV+) Hx Renal Disease (ESRD): No Hx Thyroid Disease: No Hx Human Immunodeficiency Virus (HIV): Yes (HIV non-compliant) Hx Hepatitis C: Yes (treated) Hx Depression: No Hx Suicide Attempt: No Hx Bipolar Disorder: No Hx Schizophrenia: No - Patient Surgical History Past Surgical History: No Hx Neurologic Surgery: No Hx Cataract Extraction: No Hx Cardiac Surgery: No Hx Lung Surgery: No Hx Breast Surgery: No Hx Breast Biopsy: No Hx Abdominal Surgery: No Hx Appendectomy: No Hx Cholecystectomy: No Hx Genitourinary Surgery: No Hx Section: No Hx Orthopedic Surgery: No Anesthesia Reaction: No - PPD History Date: 02/26/19 - Smoking Cessation Smoking history: Current every day smoker Have you smoked in the past 12 months: Yes Aproximately how many cigarettes per day: 20 Hx Chewing Tobacco Use: No Initiated information on smoking cessation: Yes 'Breaking Loose' booklet given: 05/30/19 - Substances abused Heroin Substance route: Inhalation Frequency: Daily Amount used: 5 bags Age of first use: 13 Date of last use: 05/30/19 Alcohol Substance route: Oral Frequency: Daily Amount used: 3 12oz cans of beer/day Age of first use: 12 Date of last use: 05/30/19 Family Disease History - Family Disease History Family Disease History: Heart Disease: Mother Admission Physical Exam BHS - Vital Signs Vital Signs: Vital Signs - 24 hr 05/30/19 05/30/19 15:07 15:13 Temperature 97.3 F L 97.3 F L Pulse Rate 50 L 50 L Respiratory 16 16 Rate Blood Pressure 119/72 119/72 - Physical General Appearance: Yes: No Apparent Distress, Sweating, Anxious HEENTM: Yes: EOMI, JOHN Respiratory: Yes: Chest Non-Tender, Lungs Clear, Normal Breath Sounds Neck: Yes: No masses,lesions,Nodules Breast: Yes: Breast Exam Deferred Cardiology: Yes: Regular Rate, S1, S2 Abdominal: Yes: Increased Bowel Sounds Genitourinary: Yes: Within Normal Limits Back: Yes: Within Normal Limits, Normal Inspection Musculoskeletal: Yes: full range of Motion, Gait Steady Extremities: Yes: Normal Capillary Refill, Normal Range of Motion Neurological: Yes: dietetic tech II-XII NML intact, Fully Oriented, Alert, Motor Strength 5/5, Normal Mood/Affect Integumentary: Yes: Within Normal Limits Lymphatic: Yes: Within Normal Limits - Diagnostic (1) Opioid dependence with withdrawal Current Visit: No Status: Acute (2) HIV (human immunodeficiency virus infection) Current Visit: No Status: Chronic Qualifiers: HIV symptom status: unspecified Qualified Code(s): B20 - Human immunodeficiency virus [HIV] disease Cleared for Admission BHS - Detox or Rehab Detox Regimen/Protocol: Methadone, Valium (prn) Breathalyzer - Breathalyzer Breathalyzer: 0 Urine Drug Screen - Test Device Lot number: [id number] Expiration date: 03/05/21 - Control Is test valid?: Yes - Results Drug screen NEGATIVE: No Urine drug screen results: FEN-Fentanyl, MOP-Opiates, OXY-Oxycodone Inpatient Rehab Admission - Rehab Decision to Admit Inpatient rehab admission?: No
[2019-05-30] MEDS ORDERED: MELATONIN 5 MG TABLETS PO PRN (16:21)
[2019-05-30] MEDS ORDERED: MAGNESIUM HYDROX 2400MG/30ML ORAL SUSPENSION 30 ML CUP PO PRN (16:21)
[2019-05-30] MEDS ORDERED: cloNIDine HCL 0.1 MG TABLET PO PRN (16:21)
[2019-05-30] MEDS ORDERED: hydrOXYzine PAMOATE 25 MG CAPSULE (FP) PO PRN (16:21)
[2019-05-30] MEDS ORDERED: IBUPROFEN 400 MG TABLET (FP) PO PRN (16:21)
[2019-05-30] MEDS ORDERED: MENTHOL/PHENOL 1 EACH UD MM PRN (16:21)
[2019-05-30] MEDS ORDERED: ACETAMINOPHEN 325 MG TABLET (FP) PO PRN ×2 (16:21)
[2019-05-30] MEDS ORDERED: MAGNESIUM CITRATE 300 ML BOTTLE PO PRN (16:21)
[2019-05-30] MEDS ORDERED: BISMUTH SUBSALICYLATE 524 MG/30 ML UD PO PRN (16:21)
[2019-05-30] MEDS ORDERED: MAG HYDROX/AL HYDROX/SIMETH 30 ML UNIT-DOSE CUP PO PRN (16:21)
[2019-05-30] MEDS ORDERED: NICOTINE POLACRILEX 2 MG GUM BC PRN (16:21)
[2019-05-30] MEDS ORDERED: METHOCARBAMOL 500 MG TABLET PO PRN (16:21)
[2019-05-30] MEDS ORDERED: METHADONE HCL 10 MG TABLET (FOR DETOX USE ONLY) PO ONE (16:21)
[2019-05-30] MEDS ORDERED: diazePAM 5 MG TABLET PO PRN (16:24)
[2019-05-30] MEDS: NICOTINE 14 MG/24 HOURS TOPICAL PATCH TD SCH (17:54)
[2019-05-30] MEDS: THIAMINE HCL 100 MG TABLET (FP) PO SCH (22:52)
[2019-05-31 09:44] LABS: HEMATOCRIT 42.9 % (35.4-49); HEMOGLOBIN 14.9 GM/dL (11.7-16.9); MCH 32.8 pg (25.7-33.7); MCHC 34.8 g/dl (32.0-35.9); MEAN CELL VOLUME 94.2 fl (80-96); MEAN PLT VOLUME 8.8 fl (7.5-11.1); PLATELET COUNT 166 K/MM3 (134-434); RBC 4.55 M/mm3 (4.00-5.60); RDW 13.6 % (11.9-15.9); WHITE BLOOD COUNT 5.8 K/mm3 (4.0-10.0)
[2019-05-31] MEDS ORDERED: METHADONE HCL 5 MG TABLET (FOR DETOX USE ONLY) PO ONE (10:00)
[2019-05-31 10:02] LABS: ALBUMIN 3.3 g/dl (3.4-5.0); BILIRUBIN,TOTAL 0.3 mg/dL (0.2-1); BLOOD UREA NITROGEN 17.4 mg/dL (7-18); CREATININE 1.2 mg/dL (0.55-1.3); POTASSIUM 4.3 mmol/L (3.5-5.1); TOT PROT 6.8 g/dl (6.4-8.2)
[2019-05-31] MEDS: PRENATAL VITAMINS W/ FOLIC ACID TABLET (FP) PO SCH (10:27)
[2019-05-31] MEDS: NICOTINE 14 MG/24 HOURS TOPICAL PATCH TD SCH (11:02)
--- NOTE | 2019-05-31 12:26 | PN ---
S CIWA - CIWA Score Nausea/Vomitin-Mild Nausea/No Vomiting Muscle Tremors: 4-Moderate,w/Arms Extend Anxiety: 3 Agitation: 2 Paroxysmal Sweats: 1-Minimal Palms Moist Orientation: 0-Oriented Tacttile Disturbances: 0-None Auditory Disturbances: 0-None Visual Disturbances: 0-None Headache: 2-Mild CIWA-Ar Total Score: 13 BHS COWS - Scale Resting Pulse: 0= [place] 80 or Below Sweatin= Chills/Flushing Restless Observation: 0= Sits Still Pupil Size: 0= Normal to Room Light Bone or Joint Aches: 2= Severe Diffuse Aches Runny Nose/ Eye Tearin= Nasal Congestion GI Upset > 30mins: 2= Nausea/Diarrhea Tremor Observation of Outstretched Hands: 2= Slight Tremor Visible Yawning Observation: 1= 1-2x During Session Anxiety or Irritability: 1=Feels Anxious/Irritable Goose Flesh Skin: 3=Piloerection COWS Score: 13 S Progress Note (SOAP) Subjective: 54 years old male admitted on 05/30/19 for alcohol and opiate withdrawal sx management doing well with methadone and valium prn detox regimen tolerate food and fluid well ambulating on hallway steady gait less tremor mild body aches Objective: 05/31/19 12:25 Vital Signs Temperature 97.4 F L 05/31/19 09:34 Pulse Rate 59 L 05/31/19 09:34 Respiratory Rate 18 05/31/19 09:34 Blood Pressure 156/84 05/31/19 09:34 O2 Sat by Pulse Oximetry (%) Laboratory Last Values WBC 5.8 K/mm3 (4.0-10.0) 05/31/19 07:00 RBC 4.55 M/mm3 (4.00-5.60) 05/31/19 07:00 Hgb 14.9 GM/dL (11.7-16.9) 05/31/19 07:00 Hct 42.9 % (35.4-49) 05/31/19 07:00 MCV 94.2 fl (80-96) 05/31/19 07:00 MCH 32.8 pg (25.7-33.7) 05/31/19 07:00 MCHC 34.8 g/dl (32.0-35.9) 05/31/19 07:00 RDW 13.6 % (11.9-15.9) 05/31/19 07:00 Plt Count 166 K/MM3 (134-434) 05/31/19 07:00 MPV 8.8 fl (7.5-11.1) 05/31/19 07:00 Sodium 140 mmol/L (136-145) 05/31/19 07:00 Potassium 4.3 mmol/L (3.5-5.1) 05/31/19 07:00 Chloride 104 mmol/L (98-107) 05/31/19 07:00 Carbon Dioxide 31 mmol/L (21-32) 05/31/19 07:00 Anion Gap 4 MMOL/L (8-16) L 05/31/19 07:00 BUN 17.4 mg/dL (7-18) 05/31/19 07:00 Creatinine 1.2 mg/dL (0.55-1.3) 05/31/19 07:00 Est GFR (CKD-EPI)AfAm 77.88 05/31/19 07:00 Est GFR (CKD-EPI)NonAf 67.19 05/31/19 07:00 Random Glucose 93 mg/dL (74-106) 05/31/19 07:00 Calcium 9.0 mg/dL (8.5-10.1) 05/31/19 07:00 Total Bilirubin 0.3 mg/dL (0.2-1) 05/31/19 07:00 AST 19 U/L (15-37) 05/31/19 07:00 ALT 16 U/L (13-61) 05/31/19 07:00 Alkaline Phosphatase 82 U/L (45-117) 05/31/19 07:00 Total Protein 6.8 g/dl (6.4-8.2) 05/31/19 07:00 Albumin 3.3 g/dl (3.4-5.0) L 05/31/19 07:00 RPR Titer Nonreactive (NONREACTIVE) 05/31/19 07:00 Assessment: 05/31/19 12:26 alcohol and opiate withdrawal sx alert oriented x 3 speech clearly coherently social with peers in day room Plan: continue methadone detox regimen with valium prn
[2019-05-31] MEDS: THIAMINE HCL 100 MG TABLET (FP) PO SCH (22:27)
[2019-06-01] MEDS ORDERED: METHADONE HCL 10 MG TABLET (FOR DETOX USE ONLY) PO ONE (10:00)
[2019-06-01] MEDS: NICOTINE 14 MG/24 HOURS TOPICAL PATCH TD SCH (10:44)
[2019-06-01] MEDS: PRENATAL VITAMINS W/ FOLIC ACID TABLET (FP) PO SCH (10:44)
--- NOTE | 2019-06-01 15:31 | PN ---
[facility] CIWA - CIWA Score Nausea/Vomitin-Mild Nausea/No Vomiting Muscle Tremors: 2 Anxiety: 2 Agitation: 2 Paroxysmal Sweats: 2 Orientation: 0-Oriented Tacttile Disturbances: 0-None Auditory Disturbances: 0-None Visual Disturbances: 0-None Headache: 0-None Present CIWA-Ar Total Score: 9 BHS COWS - Scale Resting Pulse: 0= [place] 80 or Below Sweatin= Chills/Flushing Restless Observation: 0= Sits Still Pupil Size: 0= Normal to Room Light Bone or Joint Aches: 1= Mild Discomfort Runny Nose/ Eye Tearin= Nasal Congestion GI Upset > 30mins: 1= Stomach Cramp Tremor Observation of Outstretched Hands: 2= Slight Tremor Visible Yawning Observation: 1= 1-2x During Session Anxiety or Irritability: 2=Irritable/Anxious Goose Flesh Skin: 0=Smooth Skin COWS Score: 9 [facility] Progress Note (SOAP) Subjective: doing well with methadone and valium prn detox regimen slept through the night well rested tolerate food and fluid well discuss aftercare with staff prefers [facility] Objective: 06/01/19 15:32 Vital Signs Temperature 97.3 F L 06/01/19 13:25 Pulse Rate 52 L 06/01/19 13:25 Respiratory Rate 20 06/01/19 13:25 Blood Pressure 139/87 06/01/19 13:25 O2 Sat by Pulse Oximetry (%) Laboratory Last Values WBC 5.8 K/mm3 (4.0-10.0) 05/31/19 07:00 RBC 4.55 M/mm3 (4.00-5.60) 05/31/19 07:00 Hgb 14.9 GM/dL (11.7-16.9) 05/31/19 07:00 Hct 42.9 % (35.4-49) 05/31/19 07:00 MCV 94.2 fl (80-96) 05/31/19 07:00 MCH 32.8 pg (25.7-33.7) 05/31/19 07:00 MCHC 34.8 g/dl (32.0-35.9) 05/31/19 07:00 RDW 13.6 % (11.9-15.9) 05/31/19 07:00 Plt Count 166 K/MM3 (134-434) 05/31/19 07:00 MPV 8.8 fl (7.5-11.1) 05/31/19 07:00 Sodium 140 mmol/L (136-145) 05/31/19 07:00 Potassium 4.3 mmol/L (3.5-5.1) 05/31/19 07:00 Chloride 104 mmol/L (98-107) 05/31/19 07:00 Carbon Dioxide 31 mmol/L (21-32) 05/31/19 07:00 Anion Gap 4 MMOL/L (8-16) L 05/31/19 07:00 BUN 17.4 mg/dL (7-18) 05/31/19 07:00 Creatinine 1.2 mg/dL (0.55-1.3) 05/31/19 07:00 Est GFR (CKD-EPI)AfAm 77.88 05/31/19 07:00 Est GFR (CKD-EPI)NonAf 67.19 05/31/19 07:00 Random Glucose 93 mg/dL (74-106) 05/31/19 07:00 Calcium 9.0 mg/dL (8.5-10.1) 05/31/19 07:00 Total Bilirubin 0.3 mg/dL (0.2-1) 05/31/19 07:00 AST 19 U/L (15-37) 05/31/19 07:00 ALT 16 U/L (13-61) 05/31/19 07:00 Alkaline Phosphatase 82 U/L (45-117) 05/31/19 07:00 Total Protein 6.8 g/dl (6.4-8.2) 05/31/19 07:00 Albumin 3.3 g/dl (3.4-5.0) L 05/31/19 07:00 RPR Titer Nonreactive (NONREACTIVE) 05/31/19 07:00 lab noted Assessment: 06/01/19 15:32 alcohol and opiate withdrawal sx alert oriented x 3 prefers to leave early before breakfast wants to go home and bringing personal belonging to [facility] Plan: continue methadone and valium prn
--- NOTE | 2019-06-01 16:05 | DS ---
[facility] Detox Discharge Summary Admission Date: 05/30/19 Discharge Date: 06/01/19 - History Present History: Alcohol Dependence, Opioid Dependence Additional Comments: 54 years old male 3rd [facility] admission was admitted on 05/30/19 for alcohol and opiate withdrawal sx management did well with methadone and valium prn detox regimen, no complication through out the detox regimen patient left the detox around 1800 pm handbook writer has not assessed nor evaluated the patient upon discharge Pertinent Past History: patient agrees to returning to [facility] - Physical Exam Results Vital Signs: Vital Signs Temperature 97.3 F L 06/01/19 13:25 Pulse Rate 52 L 06/01/19 13:25 Respiratory Rate 20 06/01/19 13:25 Blood Pressure 139/87 06/01/19 13:25 O2 Sat by Pulse Oximetry (%) Pertinent Admission Physical Exam Findings: alcohol and opiate withdrawal sx Laboratory Last Values WBC 5.8 K/mm3 (4.0-10.0) 05/31/19 07:00 RBC 4.55 M/mm3 (4.00-5.60) 05/31/19 07:00 Hgb 14.9 GM/dL (11.7-16.9) 05/31/19 07:00 Hct 42.9 % (35.4-49) 05/31/19 07:00 MCV 94.2 fl (80-96) 05/31/19 07:00 MCH 32.8 pg (25.7-33.7) 05/31/19 07:00 MCHC 34.8 g/dl (32.0-35.9) 05/31/19 07:00 RDW 13.6 % (11.9-15.9) 05/31/19 07:00 Plt Count 166 K/MM3 (134-434) 05/31/19 07:00 MPV 8.8 fl (7.5-11.1) 05/31/19 07:00 Sodium 140 mmol/L (136-145) 05/31/19 07:00 Potassium 4.3 mmol/L (3.5-5.1) 05/31/19 07:00 Chloride 104 mmol/L (98-107) 05/31/19 07:00 Carbon Dioxide 31 mmol/L (21-32) 05/31/19 07:00 Anion Gap 4 MMOL/L (8-16) L 05/31/19 07:00 BUN 17.4 mg/dL (7-18) 05/31/19 07:00 Creatinine 1.2 mg/dL (0.55-1.3) 05/31/19 07:00 Est GFR (CKD-EPI)AfAm 77.88 05/31/19 07:00 Est GFR (CKD-EPI)NonAf 67.19 05/31/19 07:00 Random Glucose 93 mg/dL (74-106) 05/31/19 07:00 Calcium 9.0 mg/dL (8.5-10.1) 05/31/19 07:00 Total Bilirubin 0.3 mg/dL (0.2-1) 05/31/19 07:00 AST 19 U/L (15-37) 05/31/19 07:00 ALT 16 U/L (13-61) 05/31/19 07:00 Alkaline Phosphatase 82 U/L (45-117) 05/31/19 07:00 Total Protein 6.8 g/dl (6.4-8.2) 05/31/19 07:00 Albumin 3.3 g/dl (3.4-5.0) L 05/31/19 07:00 RPR Titer Nonreactive (NONREACTIVE) 05/31/19 07:00 lab noted - Treatment Hospital Course: Detox Protocol Followed, Detoxed Safely, Responded well, Discharged Condition Good, Rehab Referral Accepted Patient has Accepted a Re[facility] Referral to: [facility] - Medication Discharge Medications: Ambulatory Orders NK [No Known Home Medication] 05/30/19 - Diagnosis (1) Alcohol dependence with uncomplicated withdrawal Status: Acute (2) Opioid dependence with withdrawal Status: Acute (3) Substance induced mood disorder Status: Suspected (4) HIV (human immunodeficiency virus infection) Status: Chronic Qualifiers: HIV symptom status: asymptomatic Qualified Code(s): Z21 - Asymptomatic human immunodeficiency virus [HIV] infection status (5) Hepatitis C carrier Status: Chronic (6) Nicotine dependence, uncomplicated Status: Acute Qualifiers: Nicotine product type: cigarettes Qualified Code(s): F17.210 - Nicotine dependence, cigarettes, uncomplicated - AMA Did Patient Leave Against Medical Advice: No CIWA Score - CIWA Score Nausea/Vomitin-Mild Nausea/No Vomiting Muscle Tremors: 2 Anxiety: 1-Mildly Anxious Agitation: 1-Slight > Activity Paroxysmal Sweats: 1-Minimal Palms Moist Orientation: 0-Oriented Tacttile Disturbances: 0-None Auditory Disturbances: 0-None Visual Disturbances: 0-None Headache: 0-None Present CIWA-Ar Total Score: 6 COWS (PN) - Opiate Withdrawal Resting Pulse: 1= [place] 81-100 Sweatin= Chills/Flushing Restless Observation: 0= Sits Still Pupil Size: 0= Normal to Room Light Bone or Joint Aches: 1= Mild Discomfort Runny Nose/ Eye Tearin= Nasal Congestion GI Upset > 30mins: 0= None Tremor Observation of Outstretched Hands: 1= Tremor [place], Not Seen Yawning Observation: 0= None Anxiety or Irritability: 1=Feels Anxious/Irritable Goose Flesh Skin: 0=Smooth Skin COWS Score: 6
[2019-06-01 18:41] VITALS: BP 113/80; PULSE 84; TEMP 98.1
[2019-06-02] MEDS ORDERED: METHADONE HCL 5 MG TABLET (FOR DETOX USE ONLY) PO ONE (06:00)
== END 2019-06-01 16:33 | disposition home or self-care (01) | DRG 773 ==
LOC: YASAS 14:52 → Y3N 16:50
PROVIDERS: ADMIT Surgery; ATTEND Surgery
PROC: HZ2ZZZZ Detoxification Services for Substance Abuse Treatment (ICD-10-PCS; principal; 2019-05-30)
DX: F11.23 Opioid dependence with withdrawal (principal); F10.230 Alcohol dependence with withdrawal, uncomplicated; F17.210 Nicotine dependence, cigarettes, uncomplicated; F19.24 Other psychoactive substance dependence with psychoactive substance-induced mood disorder; Z21 Asymptomatic human immunodeficiency virus [HIV] infection status; B18.2 Chronic viral hepatitis C; Z91.14 Patient's other noncompliance with medication regimen
CPT/HCPCS: 36415; 80053; 85027; 86593

== ENCOUNTER 2020-06-04 08:50 | Inpatient (IN) | payer OTHER ==
--- NOTE | 2020-06-04 09:43 | BHS.RME ---
Substance Use & Tx History - Substance Use History Heroin Substance amount: heroin 7 bags Frequency of use: Daily Substance route: Injection (ex: intravenous or skin popping) Date of Last Use: 06/03/20 Alcohol Substance amount: 1pint of vodka/6 packs of 24 ozs of beer Frequency of use: Daily Substance route: Oral Date of Last Use: 06/03/20 Methadone Substance amount: 60mgs Frequency of use: Once a month Substance route: Oral Date of Last Use: 06/03/20 - Last Treatment Date of last treatment: [facility] 05/30/19 to 06/01/19 Where was last treatment: Detox Physical/Psych/Mental Status - Behavior Eye Contact: Normal - Cooperativeness Cooperativeness: Cooperative - Thinking Thought Processes: Logical Thought content: Future oriented - Physical Health Problems Is patient presently having any pain?: No Does patient presently have any injuries (include location): No Does patient currently have a fever: No COWS - Scale Resting Pulse: 0= [place] 80 or Below Sweatin= Chills/Flushing Restless Observation: 1= Difficult to Sit Still Pupil Size: 1= Pupils >than Normal Bone or Joint Aches: 2= Severe Diffuse Aches Runny Nose/ Eye Tearin= Runny Nose/Eyes GI Upset > 30mins: 2= Nausea/Diarrhea Tremor Observation: 2= Slight Tremor Visible Yawning Observation: 1= 1-2x During Session Anxiety or Irritability: 2=Irritable/Anxious Goose Flesh Skin: 0=Smooth Skin COWS Score: 14 CIWA Nausea/Vomitin Muscle Tremors: 3 Anxiety: 3 Agitation: 3 Paroxysmal Sweats: 1-Minimal Palms Moist Orientation: 0-Oriented Tacttile Disturbances: 1-Very Mild Itch/Numbness Auditory Disturbances: 0-None Visual Disturbances: 0-None Headache: 2-Mild CIWA-Ar Total Score: 15
--- NOTE | 2020-06-04 10:03 | HP ---
COWS - Scale Resting Pulse: 0= [place] 80 or Below Sweatin= Chills/Flushing Restless Observation: 1= Difficult to Sit Still Pupil Size: 1= Pupils >than Normal Bone or Joint Aches: 2= Severe Diffuse Aches Runny Nose/ Eye Tearin= Runny Nose/Eyes GI Upset > 30mins: 2= Nausea/Diarrhea Tremor Observation: 2= Slight Tremor Visible Yawning Observation: 1= 1-2x During Session Anxiety or Irritability: 2=Irritable/Anxious Goose Flesh Skin: 0=Smooth Skin COWS Score: 14 CIWA Score Nausea/Vomitin Muscle Tremors: 3 Anxiety: 3 Agitation: 3 Paroxysmal Sweats: 1-Minimal Palms Moist Orientation: 0-Oriented Tacttile Disturbances: 1-Very Mild Itch/Numbness Auditory Disturbances: 0-None Visual Disturbances: 0-None Headache: 2-Mild CIWA-Ar Total Score: 15 - Admission Criteria [facility]ASAS Guidelines: Admission for Medically Managed Detox: Requires at least one of the followin. CIWA greater than 12 2. Seizures within the past 24 hours 3. Delirium tremens within the past 24 hours 4. Hallucinations within the past 24 hours 5. Acute intervention needed for co occurring medical disorder 6. Acute intervention needed for co occurring psychiatric disorder 7. Severe withdrawal that cannot be handled at a lower level of care (continued vomiting, continued diarrhea, abnormal vital signs) requiring intravenous medication and/or fluids 8. Admitting History and Physical - Admission Chief Complaint: i need help to stop using heroin and alcohol History of Present Illness: this 55 years old male with heroin and alcohol dependence seeking detox History Source: Patient Limitations to Obtaining History: No Limitations - Past Medical History Infectious Disease: Yes: HIV - Smoking History Smoking history: Current every day smoker Have you smoked in the past 12 months: Yes Aproximately how many cigarettes per day: 20 - Alcohol/Substance Use Hx Alcohol Use: No History of Substance Use: reports: Heroin - Social History Usual Living Arrangement: Yes: Alone Do you think of yourself as: Straight/Heterosexual ADL: Support Services Occupation: unemployed History of Recent Travel: No Other Social History: unemployed,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,potive eye corporate security manager Admission ROS BHS - HPI Chief Complaint: i need help to stop using heroin and alcohol Allergies/Adverse Reactions: Allergies Allergy/AdvReac Type Severity Reaction Status Date / Time No Known Allergies Allergy Verified 06/04/20 10:41 History of Present Illness: this 55 years old male with heroin and alcohol dependence seeking detox,withdrawal symptom, last detox 05/30/19 to 06/01/19,not completed denied seizure denied syncope history of hiv positive since 1984,non compliance with medication, last taken medication 1 month ago unemployed,no legal issue,smoke 1 pack of cigarette/day,positive eye corporate security manager no significant period of sobriety Exam Limitations: No Limitations - Ebola screening Have you traveled outside of the country in the last 21 days: No Have you had contact with anyone from an Ebola affected area: No Have you been sick,other than usual withdrawal symptoms: No Do you have a fever: No - Review of Systems Constitutional: Chills, Loss of Appetite, Malaise, Night Sweats, Changes in sleep, Weakness EENT: reports: Nose Congestion Respiratory: reports: No Symptoms reported Cardiac: reports: No Symptoms Reported GI: reports: Nausea, Poor Appetite, Vomiting, Abdominal cramping : reports: No Symptoms Reported Musculoskeletal: reports: Back Pain, Joint Pain, Muscle Pain Integumentary: reports: Dryness Neuro: reports: Headache, Tremors Endocrine: reports: No Symptoms Reported Hematology: reports: No Symptoms Reported, Other (hiv since 1984) Psychiatric: reports: No Sypmtoms Reported, Judgement Intact, Mood/Affect Appropiate, Orientated x3 Other Systems: Reviewed and Negative Patient History - Patient Medical History Hx Anemia: No Hx Asthma: No Hx Chronic Obstructive Pulmonary Disease (COPD): No Hx Cancer: No Hx Cardiac Disorders: No Hx Congestive Heart Failure: No Hx Hypertension: No Hx Hypercholesterolemia: No Hx Pacemaker: No HX Cerebrovascular Accident: No Hx Seizures: No Hx Dementia: No Hx Diabetes: No Hx Gastrointestinal Disorders: No Hx Liver Disease: No Hx Genitourinary Disorders: No Hx Sexually Transmitted Disorders: Yes (HIV+) Hx Renal Disease (ESRD): No Hx Thyroid Disease: No Hx Human Immunodeficiency Virus (HIV): Yes (HIV non-compliant,dx in 1984,did not take medication for 1 month) Hx Hepatitis C: Yes (treated) Hx Depression: No Hx Suicide Attempt: No Hx Bipolar Disorder: No Hx Schizophrenia: No Other Medical History: no suicidal,no homicidal - Patient Surgical History Past Surgical History: No Hx Neurologic Surgery: No Hx Cataract Extraction: No Hx Cardiac Surgery: No Hx Lung Surgery: No Hx Breast Surgery: No Hx Breast Biopsy: No Hx Abdominal Surgery: No Hx Appendectomy: No Hx Cholecystectomy: No Hx Genitourinary Surgery: No Hx Section: No Hx Orthopedic Surgery: No Anesthesia Reaction: No - PPD History Previous Implant?: Yes Documented Results: Negative w/o proof Implanted On Prior [facility] Admission?: Yes Date: 02/26/19 Results: no reading left PPD to be Administered?: Yes - Smoking Cessation Smoking history: Current every day smoker Have you smoked in the past 12 months: Yes Aproximately how many cigarettes per day: 20 Hx Chewing Tobacco Use: No Initiated information on smoking cessation: Yes 'Breaking Loose' booklet given: 06/04/20 - Substance & Tx. History Hx Alcohol Use: Yes Hx Substance Use: Yes Substance Use Type: Alcohol, Heroin Hx Substance Use Treatment: Yes ([facility] 05/30/19 to 05/12/19) - Substances abused Heroin Substance route: Injection Frequency: Daily Amount used: 7 bags Age of first use: 13 Date of last use: 06/03/20 Alcohol Substance route: Oral Frequency: Daily Amount used: 1 pint of vodka/6 packs of 24 ozs of beer Age of first use: 14 Date of last use: 06/03/20 Non-Rx Methadone Substance route: Oral Frequency: 1-3 times last 30 days Amount used: 60 mgs Age of first use: 18 Date of last use: 06/03/20 Admission Physical Exam [facility] - Vital Signs Vital Signs: t96.9,p55,r18,bp 144/85,pulse ox 98,grant 0.000 - Physical General Appearance: Yes: Moderate Distress, Tremorous, Irritable, Sweating, Anxious HEENTM: Yes: Normal ENT Inspection, JOHN, Pharynx Normal, Other (cellulits of chin) Respiratory: Yes: Lungs Clear, Normal Breath Sounds, No Respiratory Distress Neck: Yes: Within Normal Limits, Supple, Trachea in good position Breast: Yes: Within Normal Limits Cardiology: Yes: Within Normal Limits, Regular Rhythm, Regular Rate, S1, S2 Abdominal: Yes: Within Normal Limits, Normal Bowel Sounds, Non Tender, Soft Genitourinary: Yes: Within Normal Limits Back: Yes: Muscle Spasm Musculoskeletal: Yes: Back pain, Muscle Pain Extremities: Yes: Tremors 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 NML intact, Fully Oriented, Alert, Motor Strength 5/5 Integumentary: Yes: Dry Lymphatic: Yes: Within Normal Limits - Diagnostic (1) Opioid dependence with withdrawal Current Visit: No Status: Acute (2) Hepatitis C virus infection cured after antiviral drug therapy Current Visit: Yes Status: Acute (3) Alcohol dependence with uncomplicated withdrawal Current Visit: No Status: Acute (4) Nicotine dependence, uncomplicated Current Visit: No Status: Acute Qualifiers: Nicotine product type: cigarettes Qualified Code(s): F17.210 - Nicotine dependence, cigarettes, uncomplicated (5) HIV (human immunodeficiency virus infection) Current Visit: No Status: Chronic Qualifiers: HIV symptom status: asymptomatic Qualified Code(s): Z21 - Asymptomatic human immunodeficiency virus [HIV] infection status (6) Cellulitis of chin Current Visit: Yes Status: Acute (7) Weight loss Current Visit: Yes Status: Acute (8) Methadone use disorder, mild, abuse Current Visit: Yes Status: Acute Cleared for Admission [facility] - Detox or Rehab [facility] Level of Care: Medically Managed Detox Regimen/Protocol: Methadone/Valium Breathalyzer - Breathalyzer Breathalyzer: 0 Urine Drug Screen - Test Device Lot number: [id number] Expiration date: 03/05/21 - Control Is test valid?: Yes - Results Drug screen NEGATIVE: No Urine drug screen results: FEN-Fentanyl, MOP-Opiates, OXY-Oxycodone Inpatient Rehab Admission - Rehab Decision to Admit Inpatient rehab admission?: No
[2020-06-04] MEDS ORDERED: MAGNESIUM CITRATE 300 ML BOTTLE PO PRN (10:20)
[2020-06-04] MEDS ORDERED: MENTHOL/PHENOL 1 EACH UD MM PRN (10:20)
[2020-06-04] MEDS ORDERED: MAGNESIUM HYDROX 2400MG/30ML ORAL SUSPENSION 30 ML CUP PO PRN (10:20)
[2020-06-04] MEDS ORDERED: cloNIDine HCL 0.1 MG TABLET PO PRN (10:20)
[2020-06-04] MEDS ORDERED: ACETAMINOPHEN 325 MG TABLET (FP) PO PRN ×2 (10:20)
[2020-06-04] MEDS ORDERED: MAG HYDROX/AL HYDROX/SIMETH 30 ML UNIT-DOSE CUP PO PRN (10:20)
[2020-06-04] MEDS ORDERED: IBUPROFEN 400 MG TABLET (FP) PO PRN (10:20)
[2020-06-04] MEDS ORDERED: NICOTINE POLACRILEX 2 MG GUM BUC PRN (10:20)
[2020-06-04] MEDS ORDERED: BISMUTH SUBSALICYLATE 524 MG/30 ML UD PO PRN (10:20)
[2020-06-04] MEDS ORDERED: METHOCARBAMOL 500 MG TABLET PO PRN (10:20)
[2020-06-04 10:43] VITALS: BMI 24.5
--- NOTE | 2020-06-04 10:43 | PN ---
BHS Progress Note Note: ekg sinus bradycardia 41/min,prolong qt 440/363, no chest pain,no sob,no dizziness close monitoring and continue detox methadone and valium regimen to repeat ekg on 06/05/20 at 0900
[2020-06-04] MEDS ORDERED: ONDANSETRON *ODT* 4 MG TABLET SL ONE (10:45)
[2020-06-04] MEDS ORDERED: METHADONE HCL 10 MG TABLET (FOR DETOX USE ONLY) PO ONE (10:45)
[2020-06-04] MEDS: NICOTINE 21 MG/24 HOURS TOPICAL PATCH TD SCH (12:38)
[2020-06-04] MEDS ORDERED: hydrOXYzine PAMOATE 25 MG CAPSULE (FP) PO SCH (14:00)
[2020-06-04] MEDS: CLINDAMYCIN HCL 150 MG CAPSULE (FP) PO SCH ×2 (14:17→22:50)
[2020-06-04] MEDS: SULFAMETHOXAZOLE/TRIMETHOPRIM 800MG/160MG D.S. TABLET PO SCH ×2 (14:17→22:51)
[2020-06-04] MEDS: diazePAM 5 MG TABLET PO SCH ×2 (14:21→22:51)
[2020-06-04] MEDS: THIAMINE HCL 100 MG TABLET (FP) PO SCH (22:50)
[2020-06-04] MEDS: MELATONIN 5 MG TABLETS PO SCH (22:51)
[2020-06-05] MEDS: diazePAM 5 MG TABLET PO SCH ×3 (05:56→22:33)
[2020-06-05] MEDS: CLINDAMYCIN HCL 150 MG CAPSULE (FP) PO SCH ×3 (05:56→22:33)
[2020-06-05] MEDS ORDERED: METHADONE HCL 10 MG TABLET (FOR DETOX USE ONLY) ONE (09:39)
[2020-06-05] MEDS ORDERED: METHADONE HCL 5 MG TABLET (FOR DETOX USE ONLY) ONE (09:39)
--- NOTE | 2020-06-05 09:54 | PN ---
S CIWA - CIWA Score Nausea/Vomitin-Mild Nausea/No Vomiting Muscle Tremors: 3 Anxiety: 1-Mildly Anxious Agitation: 2 Paroxysmal Sweats: 1-Minimal Palms Moist Orientation: 1-Uncertain about Date (date of week) Tacttile Disturbances: 1-Very Mild Itch/Numbness Auditory Disturbances: 0-None Visual Disturbances: 1-Very Mild Sensitivity Headache: 1-Very Mild CIWA-Ar Total Score: 12 S COWS - Scale Resting Pulse: 0= [place] 80 or Below Sweatin= Chills/Flushing Restless Observation: 0= Sits Still Pupil Size: 1= Pupils >than Normal Bone or Joint Aches: 1= Mild Discomfort Runny Nose/ Eye Tearin= Nasal Congestion GI Upset > 30mins: 2= Nausea/Diarrhea Tremor Observation of Outstretched Hands: 2= Slight Tremor Visible Yawning Observation: 0= None Anxiety or Irritability: 2=Irritable/Anxious Goose Flesh Skin: 0=Smooth Skin COWS Score: 10 S Progress Note (SOAP) Subjective: 55 years old male was admitted on 06/04/20 for alcohol and opiate withdrawal sx management treating with valium and methadone detox regiments bradycardia related to valium mr sheets denies chest pain denies dizziness ate breakfast in room tolerated food well Objective: 06/05/20 09:58 Vital Signs - 24 hr 06/04/20 06/04/20 06/04/20 10:41 11:48 12:33 Temperature 97.9 F 97.5 F L 97.1 F L Pulse Rate 55 L 47 L 44 L Respiratory 18 18 18 Rate Blood Pressure 144/85 127/78 150/78 O2 Sat by Pulse 98 Oximetry (%) 06/04/20 06/04/20 06/04/20 15:30 17:42 20:48 Temperature 97.9 F 97.2 F L Pulse Rate 47 L 50 L 59 L Respiratory 18 16 17 Rate Blood Pressure 120/67 113/69 106/65 O2 Sat by Pulse 95 Oximetry (%) 06/05/20 06/05/20 05:48 09:15 Temperature 97.5 F L 97.4 F L Pulse Rate 45 L 64 Respiratory 17 18 Rate Blood Pressure 132/71 118/69 O2 Sat by Pulse 97 97 Oximetry (%) Laboratory Tests 06/04/20 10:58 COVID-19 (BETZY) Not detected 06/05/20 09:58 lab pending Assessment: 06/05/20 09:59 alcohol and opiate withdrawal Plan: valium and methadone regiments
[2020-06-05] MEDS ORDERED: METHADONE (DETOX) 20 MG, METHADONE (DETOX) 5 MG PO ONE (10:00)
[2020-06-05] MEDS: SULFAMETHOXAZOLE/TRIMETHOPRIM 800MG/160MG D.S. TABLET PO SCH ×2 (10:07→22:33)
[2020-06-05] MEDS: PRENATAL VITAMINS W/ FOLIC ACID TABLET (FP) PO SCH (10:07)
[2020-06-05] MEDS: NICOTINE 21 MG/24 HOURS TOPICAL PATCH TD SCH (10:08)
[2020-06-05] MEDS: diazePAM 5 MG TABLET PO PRN ×2 (10:10→17:40)
--- NOTE | 2020-06-05 11:22 | EKG ---
Test Reason : Blood Pressure : / mmHG Vent. Rate : 041 BPM Atrial Rate : 041 BPM P-R Int : 156 ms QRS Dur : 100 ms QT Int : 440 ms P-R-T Axes : 062 083 080 degrees QTc Int : 363 ms MARKED SINUS BRADYCARDIA NONSPECIFIC T WAVE ABNORMALITY ABNORMAL ECG WHEN COMPARED WITH ECG OF 24-FEB-2019 20:36, NO SIGNIFICANT CHANGE WAS FOUND Confirmed by MANSOOR BROWNE MD ([id number]) on 06/05/2020 11:21:40 AM Referred By: Confirmed By:MANSOOR BROWNE MD
[2020-06-05 13:00] LABS: HEMATOCRIT 41.7 % (35.4-49); MCH 30.3 pg (25.7-33.7); MCHC 33.6 g/dl (32.0-35.9); MEAN CELL VOLUME 90.3 fl (80-96); MEAN PLT VOLUME 8.9 fl (7.5-11.1); PLATELET COUNT 169 K/MM3 (134-434); RBC 4.62 M/mm3 (4.00-5.60); RDW 13.7 % (11.9-15.9); WHITE BLOOD COUNT 4.9 K/mm3 (4.0-10.0)
[2020-06-05 13:10] LABS: ALBUMIN 3.1 g/dl (3.4-5.0); BILIRUBIN,TOTAL 0.6 mg/dL (0.2-1); BLOOD UREA NITROGEN 22.1 mg/dL (7-18); CALCIUM 8.7 mg/dL (8.5-10.1); CREATININE 1.4 mg/dL (0.55-1.3); POTASSIUM 4.2 mmol/L (3.5-5.1)
--- NOTE | 2020-06-05 17:50 | EKG ---
Test Reason : Blood Pressure : / mmHG Vent. Rate : 046 BPM Atrial Rate : 046 BPM P-R Int : 168 ms QRS Dur : 094 ms QT Int : 432 ms P-R-T Axes : 059 086 066 degrees QTc Int : 378 ms SINUS BRADYCARDIA NONSPECIFIC T WAVE ABNORMALITY ABNORMAL ECG WHEN COMPARED WITH ECG OF 04-JUN-2020 09:28, NO SIGNIFICANT CHANGE WAS FOUND Confirmed by MANSOOR BROWNE MD ([id number]) on 06/05/2020 5:49:36 PM Referred By: Confirmed By:MANSOOR BROWNE MD
[2020-06-05] MEDS: THIAMINE HCL 100 MG TABLET (FP) PO SCH (22:33)
[2020-06-05] MEDS: MELATONIN 5 MG TABLETS PO SCH (22:33)
[2020-06-06] MEDS: diazePAM 5 MG TABLET PO SCH ×2 (05:41→17:38)
[2020-06-06] MEDS: CLINDAMYCIN HCL 150 MG CAPSULE (FP) PO SCH ×3 (05:41→22:32)
[2020-06-06] MEDS: NICOTINE 21 MG/24 HOURS TOPICAL PATCH TD SCH (09:44)
[2020-06-06] MEDS: SULFAMETHOXAZOLE/TRIMETHOPRIM 800MG/160MG D.S. TABLET PO SCH ×2 (09:44→22:32)
[2020-06-06] MEDS: PRENATAL VITAMINS W/ FOLIC ACID TABLET (FP) PO SCH (09:44)
[2020-06-06] MEDS ORDERED: METHADONE HCL 10 MG TABLET (FOR DETOX USE ONLY) PO ONE (10:00)
--- NOTE | 2020-06-06 10:12 | PN ---
S CIWA - CIWA Score Nausea/Vomitin-No Nausea/No Vomiting Muscle Tremors: 2 Anxiety: 2 Agitation: 1-Slight > Activity Paroxysmal Sweats: 1-Minimal Palms Moist Orientation: 0-Oriented Tacttile Disturbances: 0-None Auditory Disturbances: 0-None Visual Disturbances: 2-Mild Sensitivity Headache: 1-Very Mild CIWA-Ar Total Score: 9 BHS COWS - Scale Resting Pulse: 0= [place] 80 or Below Sweatin= Chills/Flushing Restless Observation: 0= Sits Still Pupil Size: 1= Pupils >than Normal Bone or Joint Aches: 1= Mild Discomfort Runny Nose/ Eye Tearin= None GI Upset > 30mins: 1= Stomach Cramp Tremor Observation of Outstretched Hands: 2= Slight Tremor Visible Yawning Observation: 1= 1-2x During Session Anxiety or Irritability: 2=Irritable/Anxious Goose Flesh Skin: 0=Smooth Skin COWS Score: 9 S Progress Note (SOAP) Subjective: 55 years old male was admitted on 06/04/20 for alcohol and opiate withdrawal sx mangement treating with valium and methadone detox regiments ate breakfast in room continue ensure supplement encourage mr sheets follow up with [facility] referral as aftercare Objective: 06/06/20 10:15 Vital Signs - 24 hr 06/05/20 06/05/20 06/05/20 12:40 16:35 20:42 Temperature 96.7 F L 97.3 F L 97.5 F L Pulse Rate 77 43 L 56 L Respiratory 18 18 18 Rate Blood Pressure 110/68 117/67 113/70 O2 Sat by Pulse 96 96 94 L Oximetry (%) 06/06/20 06/06/20 06:35 08:43 Temperature 97.1 F L 96.8 F L Pulse Rate 55 L 58 L Respiratory 18 18 Rate Blood Pressure 118/63 110/62 O2 Sat by Pulse 97 97 Oximetry (%) Laboratory Tests 06/04/20 06/05/20 06/05/20 10:58 07:55 07:55 WBC 4.9 RBC 4.62 Hgb 14.0 Hct 41.7 MCV 90.3 MCH 30.3 MCHC 33.6 RDW 13.7 Plt Count 169 MPV 8.9 Sodium Potassium Chloride Carbon Dioxide Anion Gap BUN Creatinine Est GFR (CKD-EPI)AfAm Est GFR (CKD-EPI)NonAf Random Glucose Calcium Total Bilirubin AST ALT Alkaline Phosphatase Total Protein Albumin Syphilis Serology Non-reactive COVID-19 (BETZY) Not detected 06/05/20 07:55 WBC RBC Hgb Hct MCV MCH MCHC RDW Plt Count MPV Sodium 138 Potassium 4.2 Chloride 104 Carbon Dioxide 30 Anion Gap 4 L BUN 22.1 H Creatinine 1.4 H Est GFR (CKD-EPI)AfAm 64.18 Est GFR (CKD-EPI)NonAf 55.38 Random Glucose 94 Calcium 8.7 Total Bilirubin 0.6 AST 16 ALT 15 Alkaline Phosphatase 97 Total Protein 7.0 Albumin 3.1 L Syphilis Serology COVID-19 (BETZY) lab noted Assessment: 06/06/20 10:16 alcohol and opiate withdrawal Plan: valium and methadone regiments
[2020-06-06] MEDS: THIAMINE HCL 100 MG TABLET (FP) PO SCH (22:31)
[2020-06-06] MEDS: MELATONIN 5 MG TABLETS PO SCH (22:32)
[2020-06-07] MEDS: CLINDAMYCIN HCL 150 MG CAPSULE (FP) PO SCH ×3 (05:25→23:33)
[2020-06-07] MEDS ORDERED: diazePAM 5 MG TABLET PO ONE (06:00)
[2020-06-07] MEDS ORDERED: METHADONE HCL 5 MG TABLET (FOR DETOX USE ONLY) ONE (08:42)
[2020-06-07] MEDS ORDERED: METHADONE HCL 10 MG TABLET (FOR DETOX USE ONLY) ONE (08:42)
--- NOTE | 2020-06-07 09:00 | PN ---
[facility] CIWA - CIWA Score Nausea/Vomitin-Mild Nausea/No Vomiting Muscle Tremors: 1-None Visible, but [place] Anxiety: 1-Mildly Anxious Agitation: 0-Normal Activity Paroxysmal Sweats: 2 Orientation: 0-Oriented Tacttile Disturbances: 0-None Auditory Disturbances: 0-None Visual Disturbances: 0-None Headache: 1-Very Mild CIWA-Ar Total Score: 6 BHS COWS - Scale Resting Pulse: 0= [place] 80 or Below Sweatin= No chills or Flushing Restless Observation: 0= Sits Still Pupil Size: 1= Pupils >than Normal Bone or Joint Aches: 1= Mild Discomfort Runny Nose/ Eye Tearin= None GI Upset > 30mins: 2= Nausea/Diarrhea Tremor Observation of Outstretched Hands: 1= Tremor [place], Not Seen Yawning Observation: 0= None Anxiety or Irritability: 1=Feels Anxious/Irritable Goose Flesh Skin: 0=Smooth Skin COWS Score: 6 S Progress Note (SOAP) Subjective: 55 years old male was admitted on 06/04/20 for alcohol and opiate withdrawal sx management treating with valium and methadone detox regiments loose stool x 1 good skin turgor, moist oral membrane imodium 4 mg po x 1 continue ensure supplement with oral fluid Objective: 06/07/20 09:03 Vital Signs - 24 hr 06/06/20 06/06/20 06/06/20 12:50 16:36 21:10 Temperature 97.8 F 97.7 F 98.1 F Pulse Rate 62 56 L 66 Respiratory 18 18 16 Rate Blood Pressure 124/78 125/78 126/77 O2 Sat by Pulse 98 99 Oximetry (%) 06/07/20 06:31 Temperature 97.7 F Pulse Rate 73 Respiratory 18 Rate Blood Pressure 123/78 O2 Sat by Pulse 98 Oximetry (%) Laboratory Tests 06/04/20 06/05/20 06/05/20 10:58 07:55 07:55 WBC 4.9 RBC 4.62 Hgb 14.0 Hct 41.7 MCV 90.3 MCH 30.3 MCHC 33.6 RDW 13.7 Plt Count 169 MPV 8.9 Sodium Potassium Chloride Carbon Dioxide Anion Gap BUN Creatinine Est GFR (CKD-EPI)AfAm Est GFR (CKD-EPI)NonAf Random Glucose Calcium Total Bilirubin AST ALT Alkaline Phosphatase Total Protein Albumin Syphilis Serology Non-reactive COVID-19 (BETZY) Not detected 06/05/20 07:55 WBC RBC Hgb Hct MCV MCH MCHC RDW Plt Count MPV Sodium 138 Potassium 4.2 Chloride 104 Carbon Dioxide 30 Anion Gap 4 L BUN 22.1 H Creatinine 1.4 H Est GFR (CKD-EPI)AfAm 64.18 Est GFR (CKD-EPI)NonAf 55.38 Random Glucose 94 Calcium 8.7 Total Bilirubin 0.6 AST 16 ALT 15 Alkaline Phosphatase 97 Total Protein 7.0 Albumin 3.1 L Syphilis Serology COVID-19 (BETZY) lab noted Assessment: 06/07/20 09:04 alcohol and opiate withdrawal 06/07/20 09:04 hiv Plan: valium and methadone regiments no current treatment
[2020-06-07] MEDS: SULFAMETHOXAZOLE/TRIMETHOPRIM 800MG/160MG D.S. TABLET PO SCH ×2 (09:54→23:33)
[2020-06-07] MEDS: PRENATAL VITAMINS W/ FOLIC ACID TABLET (FP) PO SCH (09:54)
[2020-06-07] MEDS: NICOTINE 21 MG/24 HOURS TOPICAL PATCH TD SCH (09:54)
[2020-06-07] MEDS: diazePAM 5 MG TABLET PO PRN (09:58)
[2020-06-07] MEDS ORDERED: LOPERAMIDE HCL 2 MG CAPSULE PO ONE (10:00)
[2020-06-07] MEDS ORDERED: METHADONE (DETOX) 10 MG, METHADONE (DETOX) 5 MG PO ONE (10:00)
[2020-06-07] MEDS: hydrOXYzine PAMOATE 25 MG CAPSULE (FP) PO PRN (17:55)
[2020-06-07] MEDS: THIAMINE HCL 100 MG TABLET (FP) PO SCH (23:33)
[2020-06-07] MEDS: MELATONIN 5 MG TABLETS PO SCH (23:33)
[2020-06-08] MEDS: CLINDAMYCIN HCL 150 MG CAPSULE (FP) PO SCH ×3 (05:36→22:29)
[2020-06-08] MEDS: hydrOXYzine PAMOATE 25 MG CAPSULE (FP) PO PRN ×2 (05:36→09:55)
[2020-06-08] MEDS: SULFAMETHOXAZOLE/TRIMETHOPRIM 800MG/160MG D.S. TABLET PO SCH ×2 (09:53→22:29)
[2020-06-08] MEDS: NICOTINE 21 MG/24 HOURS TOPICAL PATCH TD SCH (09:53)
[2020-06-08] MEDS: PRENATAL VITAMINS W/ FOLIC ACID TABLET (FP) PO SCH (09:53)
[2020-06-08] MEDS ORDERED: METHADONE HCL 10 MG TABLET (FOR DETOX USE ONLY) PO ONE (10:00)
--- NOTE | 2020-06-08 15:22 | PN ---
[facility] CIWA - CIWA Score Nausea/Vomitin-Mild Nausea/No Vomiting Muscle Tremors: 2 Anxiety: 2 Agitation: 2 Paroxysmal Sweats: No Perspiration Orientation: 0-Oriented Tacttile Disturbances: 0-None Auditory Disturbances: 0-None Visual Disturbances: 0-None Headache: 1-Very Mild CIWA-Ar Total Score: 8 S COWS - Scale Resting Pulse: 0= [place] 80 or Below Sweatin= No chills or Flushing Restless Observation: 0= Sits Still Pupil Size: 0= Normal to Room Light Bone or Joint Aches: 1= Mild Discomfort Runny Nose/ Eye Tearin= Nasal Congestion GI Upset > 30mins: 1= Stomach Cramp Tremor Observation of Outstretched Hands: 2= Slight Tremor Visible Yawning Observation: 0= None Anxiety or Irritability: 2=Irritable/Anxious Goose Flesh Skin: 0=Smooth Skin COWS Score: 7 S Progress Note (SOAP) Subjective: alert,irritable,anxious,interrupted sleep,aching pain Objective: 06/08/20 15:21 Vital Signs Temperature 97.8 F 06/08/20 12:39 Pulse Rate 85 06/08/20 12:39 Respiratory Rate 18 06/08/20 12:39 Blood Pressure 111/70 06/08/20 12:39 O2 Sat by Pulse Oximetry (%) 99 06/08/20 12:39 Assessment: 06/08/20 15:21 withdrawal symptom Plan: continue detox methadone and valium regimen,discharge in am
[2020-06-08] MEDS: THIAMINE HCL 100 MG TABLET (FP) PO SCH (22:29)
[2020-06-08] MEDS: MELATONIN 5 MG TABLETS PO SCH (22:29)
[2020-06-09] MEDS ORDERED: METHADONE HCL 5 MG TABLET (FOR DETOX USE ONLY) PO ONE (06:00)
[2020-06-09] MEDS: CLINDAMYCIN HCL 150 MG CAPSULE (FP) PO SCH (06:50)
[2020-06-09 09:10] VITALS: BP 120/67; PULSE 77; TEMP 97.6
--- NOTE | 2020-06-09 10:06 | DS ---
[facility] Detox Discharge Summary Admission Date: 06/04/20 Discharge Date: 06/09/20 - History Additional Comments: alert,oriented x 3 ambulation on the unit lung clear on auscultation bilaterally abdomen n pain,no distension cellulitis of chin improved ,less swelling and erythema much improved stable for discharge today follow up with after care program [facility] as arrangement total time spending on discharge 35 minutes Pertinent Past History: hiv hepatitis c cellulitis of chin - Physical Exam Results Vital Signs: Vital Signs Temperature 97.6 F 06/09/20 08:44 Pulse Rate 77 06/09/20 08:44 Respiratory Rate 18 06/09/20 08:44 Blood Pressure 120/67 06/09/20 08:44 O2 Sat by Pulse Oximetry (%) 99 06/09/20 08:44 Pertinent Admission Physical Exam Findings: withdrawal signs and symptom Laboratory Last Values WBC 4.9 K/mm3 (4.0-10.0) 06/05/20 07:55 RBC 4.62 M/mm3 (4.00-5.60) 06/05/20 07:55 Hgb 14.0 GM/dL (11.7-16.9) 06/05/20 07:55 Hct 41.7 % (35.4-49) 06/05/20 07:55 MCV 90.3 fl (80-96) 06/05/20 07:55 MCH 30.3 pg (25.7-33.7) 06/05/20 07:55 MCHC 33.6 g/dl (32.0-35.9) 06/05/20 07:55 RDW 13.7 % (11.9-15.9) 06/05/20 07:55 Plt Count 169 K/MM3 (134-434) 06/05/20 07:55 MPV 8.9 fl (7.5-11.1) 06/05/20 07:55 Sodium 138 mmol/L (136-145) 06/05/20 07:55 Potassium 4.2 mmol/L (3.5-5.1) 06/05/20 07:55 Chloride 104 mmol/L (98-107) 06/05/20 07:55 Carbon Dioxide 30 mmol/L (21-32) 06/05/20 07:55 Anion Gap 4 MMOL/L (8-16) L 06/05/20 07:55 BUN 22.1 mg/dL (7-18) H 06/05/20 07:55 Creatinine 1.4 mg/dL (0.55-1.3) H 06/05/20 07:55 Est GFR (CKD-EPI)AfAm 64.18 06/05/20 07:55 Est GFR (CKD-EPI)NonAf 55.38 06/05/20 07:55 Random Glucose 94 mg/dL (74-106) 06/05/20 07:55 Calcium 8.7 mg/dL (8.5-10.1) 06/05/20 07:55 Total Bilirubin 0.6 mg/dL (0.2-1) 06/05/20 07:55 AST 16 U/L (15-37) 06/05/20 07:55 ALT 15 U/L (13-61) 06/05/20 07:55 Alkaline Phosphatase 97 U/L (45-117) 06/05/20 07:55 Total Protein 7.0 g/dl (6.4-8.2) 06/05/20 07:55 Albumin 3.1 g/dl (3.4-5.0) L 06/05/20 07:55 Syphilis Serology Non-reactive (NONREACTIVE) 06/05/20 07:55 COVID-19 (BETZY) Not detected (Not Detected) 06/04/20 10:58 Vital Signs Temperature 97.6 F 06/09/20 08:44 Pulse Rate 77 06/09/20 08:44 Respiratory Rate 18 06/09/20 08:44 Blood Pressure 120/67 06/09/20 08:44 O2 Sat by Pulse Oximetry (%) 99 06/09/20 08:44 - Treatment Hospital Course: Detox Protocol Followed, Detoxed Safely, Responded well, Discharged Condition Good, Rehab Referral Accepted Patient has Accepted a Rehab Referral to: [facility] - Medication Discharge Medications: Ambulatory Orders NK [No Known Home Medication] 05/30/19 - Diagnosis (1) Opioid dependence with withdrawal Status: Acute (2) Hepatitis C virus infection cured after antiviral drug therapy Status: Acute (3) Alcohol dependence with uncomplicated withdrawal Status: Acute (4) Nicotine dependence, uncomplicated Status: Acute Qualifiers: Nicotine product type: cigarettes Qualified Code(s): F17.210 - Nicotine dependence, cigarettes, uncomplicated (5) HIV (human immunodeficiency virus infection) Status: Chronic Qualifiers: HIV symptom status: asymptomatic Qualified Code(s): Z21 - Asymptomatic human immunodeficiency virus [HIV] infection status (6) Cellulitis of chin Status: Acute (7) Weight loss Status: Acute (8) Methadone use disorder, mild, abuse Status: Acute - AMA Did Patient Leave Against Medical Advice: No
--- NOTE | 2020-06-09 10:06 | PN ---
[facility] CIWA - CIWA Score Nausea/Vomitin-No Nausea/No Vomiting Muscle Tremors: None Anxiety: 1-Mildly Anxious Agitation: 0-Normal Activity Paroxysmal Sweats: No Perspiration Orientation: 0-Oriented Tacttile Disturbances: 0-None Auditory Disturbances: 0-None Visual Disturbances: 0-None Headache: 0-None Present CIWA-Ar Total Score: 1 S Progress Note (SOAP) Subjective: alert,no complaint Objective: 06/09/20 12:30 Vital Signs Temperature 97.6 F 06/09/20 08:44 Pulse Rate 77 06/09/20 08:44 Respiratory Rate 18 06/09/20 08:44 Blood Pressure 120/67 06/09/20 08:44 O2 Sat by Pulse Oximetry (%) 99 06/09/20 08:44 Assessment: 06/09/20 12:30 detox completed,no withdrawal symptom Plan: stable for discharge today,follow up with after care program as arrangement [facility]
== END 2020-06-09 09:13 | disposition home or self-care (01) | DRG 773 ==
LOC: YASAS 08:50 → Y3N 10:25
PROVIDERS: ADMIT Allergy & Immunology; ATTEND Allergy & Immunology
PROC: HZ2ZZZZ Detoxification Services for Substance Abuse Treatment (ICD-10-PCS; principal; 2020-06-04)
DX: F10.230 Alcohol dependence with withdrawal, uncomplicated (principal); F11.23 Opioid dependence with withdrawal; F17.210 Nicotine dependence, cigarettes, uncomplicated; Z21 Asymptomatic human immunodeficiency virus [HIV] infection status; L03.211 Cellulitis of face; R00.1 Bradycardia, unspecified; R63.4 Abnormal weight loss; Z68.24 Body mass index [BMI] 24.0-24.9, adult; Z86.19 Personal history of other infectious and parasitic diseases; Z91.14 Patient's other noncompliance with medication regimen; Z56.0 Unemployment, unspecified
CPT/HCPCS: 36415; 80053; 85027; 86780; 93005; 93010; U0003

== ENCOUNTER 2021-03-24 12:20 | Inpatient (IN) | payer OTHER ==
[2021-03-24 15:47] VITALS: BMI 25.3
[2021-03-24] MEDS ORDERED: METHOCARBAMOL 500 MG TABLET PO PRN (18:27)
[2021-03-24] MEDS ORDERED: MAGNESIUM HYDROX 2400MG/30ML ORAL SUSPENSION 30 ML CUP PO PRN (18:27)
[2021-03-24] MEDS ORDERED: MAGNESIUM CITRATE 300 ML BOTTLE PO PRN (18:27)
[2021-03-24] MEDS ORDERED: diazePAM 5 MG TABLET PO PRN (18:27)
[2021-03-24] MEDS ORDERED: IBUPROFEN 400 MG TABLET (FP) PO PRN (18:27)
[2021-03-24] MEDS ORDERED: MAG HYDROX/AL HYDROX/SIMETH 30 ML UNIT-DOSE CUP PO PRN (18:27)
[2021-03-24] MEDS ORDERED: METHADONE HCL 10 MG TABLET (FOR DETOX USE ONLY) PO ONE (18:27)
[2021-03-24] MEDS ORDERED: MENTHOL/PHENOL 1 EACH UD MM PRN (18:27)
[2021-03-24] MEDS ORDERED: NICOTINE POLACRILEX 2 MG GUM BUC PRN (18:27)
[2021-03-24] MEDS ORDERED: BISMUTH SUBSALICYLATE 524 MG/30 ML PO PRN (18:27)
[2021-03-24] MEDS ORDERED: ACETAMINOPHEN 325 MG TABLET (FP) PO PRN ×2 (18:27)
[2021-03-24] MEDS ORDERED: cloNIDine HCL 0.1 MG TABLET PO PRN (18:27)
[2021-03-24] MEDS ORDERED: ONDANSETRON *ODT* 4 MG TABLET SL PRN (18:27)
[2021-03-24] MEDS ORDERED: THIAMINE HCL 100 MG TABLET (FP) PO SCH (22:00)
[2021-03-24] MEDS ORDERED: MELATONIN 5 MG TABLETS PO SCH (22:00)
[2021-03-24] MEDS: diazePAM 5 MG TABLET PO SCH (22:17)
[2021-03-24] MEDS: hydrOXYzine PAMOATE 25 MG CAPSULE (FP) PO SCH (22:19)
[2021-03-25] MEDS: diazePAM 5 MG TABLET PO SCH ×2 (05:45→10:06)
[2021-03-25] MEDS: hydrOXYzine PAMOATE 25 MG CAPSULE (FP) PO SCH ×3 (05:46→13:53)
[2021-03-25] MEDS ORDERED: METHADONE HCL 5 MG TABLET (FOR DETOX USE ONLY) ONE (08:55)
[2021-03-25] MEDS ORDERED: METHADONE HCL 10 MG TABLET (FOR DETOX USE ONLY) ONE (08:55)
[2021-03-25] MEDS ORDERED: METHADONE (DETOX) 20 MG, METHADONE (DETOX) 5 MG PO ONE (10:00)
[2021-03-25] MEDS ORDERED: PRENATAL VITAMINS W/ FOLIC ACID TABLET (FP) PO SCH (10:00)
[2021-03-25 10:13] LABS: ALBUMIN 3.2 g/dl (3.4-5.0); BLOOD UREA NITROGEN 12.2 mg/dL (7-18); CALCIUM 9.1 mg/dL (8.5-10.1)
[2021-03-25 10:17] LABS: CREATININE 0.9 mg/dL (0.55-1.3)
[2021-03-25 10:18] LABS: BILIRUBIN,TOTAL 0.7 mg/dL (0.2-1); TOT PROT 7.9 g/dl (6.4-8.2)
[2021-03-25 10:19] LABS: HEMATOCRIT 40.4 % (35.4-49); HEMOGLOBIN 13.7 GM/dL (11.7-16.9); MCH 29.6 pg (25.7-33.7); MCHC 33.8 g/dl (32.0-35.9); MEAN CELL VOLUME 87.5 fl (80-96); MEAN PLT VOLUME 9.2 fl (7.5-11.1); PLATELET COUNT 73 10^3/uL (134-434); RBC 4.62 M/mm3 (4.00-5.60); RDW 13.1 % (11.9-15.9); WHITE BLOOD COUNT 6.3 K/mm3 (4.0-10.0)
[2021-03-25 13:35] VITALS: BP 144/89; PULSE 63; TEMP 96.6
[2021-03-26] MEDS ORDERED: diazePAM 5 MG TABLET PO SCH (06:00)
[2021-03-26] MEDS ORDERED: METHADONE HCL 10 MG TABLET (FOR DETOX USE ONLY) PO ONE (10:00)
[2021-03-27] MEDS ORDERED: diazePAM 5 MG TABLET PO SCH (06:00)
[2021-03-27] MEDS ORDERED: METHADONE (DETOX) 10 MG, METHADONE (DETOX) 5 MG PO ONE (10:00)
[2021-03-28] MEDS ORDERED: diazePAM 5 MG TABLET PO ONE (06:00)
[2021-03-28] MEDS ORDERED: METHADONE HCL 10 MG TABLET (FOR DETOX USE ONLY) PO ONE (10:00)
[2021-03-29] MEDS ORDERED: METHADONE HCL 5 MG TABLET (FOR DETOX USE ONLY) PO ONE (06:00)
== END 2021-03-25 15:40 | disposition left against medical advice (07) | DRG 770 ==
LOC: YASAS 12:20 → Y3N 18:02
PROVIDERS: ADMIT Allergy & Immunology; ATTEND Allergy & Immunology
PROC: HZ2ZZZZ Detoxification Services for Substance Abuse Treatment (ICD-10-PCS; principal; 2021-03-24)
DX: F11.23 Opioid dependence with withdrawal (principal); F10.230 Alcohol dependence with withdrawal, uncomplicated; F17.210 Nicotine dependence, cigarettes, uncomplicated; Z21 Asymptomatic human immunodeficiency virus [HIV] infection status; R63.4 Abnormal weight loss; Z68.25 Body mass index [BMI] 25.0-25.9, adult; Z86.19 Personal history of other infectious and parasitic diseases
CPT/HCPCS: 36415; 80053; 85027; 86780; C9803; J0735; U0003; U0005

== ENCOUNTER 2021-05-09 11:57 | Inpatient (IN) | payer OTHER ==
[2021-05-09 12:34] VITALS: BMI 24.2
[2021-05-09] MEDS ORDERED: MAGNESIUM CITRATE 300 ML BOTTLE PO PRN (15:55)
[2021-05-09] MEDS ORDERED: ONDANSETRON *ODT* 4 MG TABLET SL PRN (15:55)
[2021-05-09] MEDS ORDERED: MAG HYDROX/AL HYDROX/SIMETH 30 ML UNIT-DOSE CUP PO PRN (15:55)
[2021-05-09] MEDS ORDERED: MAGNESIUM HYDROX 2400MG/30ML ORAL SUSPENSION 30 ML CUP PO PRN (15:55)
[2021-05-09] MEDS ORDERED: IBUPROFEN 400 MG TABLET (FP) PO PRN (15:55)
[2021-05-09] MEDS ORDERED: ACETAMINOPHEN 325 MG TABLET (FP) PO PRN ×2 (15:55)
[2021-05-09] MEDS ORDERED: MENTHOL/PHENOL 1 EACH UD MM PRN (15:55)
[2021-05-09] MEDS ORDERED: BISMUTH SUBSALICYLATE 524 MG/30 ML PO PRN (15:55)
[2021-05-09] MEDS ORDERED: cloNIDine HCL 0.1 MG TABLET PO PRN (15:55)
[2021-05-09] MEDS ORDERED: methaDONE HCL 10 MG TABLET (FOR DETOX USE ONLY) PO ONE ×2 (15:55→22:15)
[2021-05-09] MEDS ORDERED: NICOTINE 10 MG CARTRIDGE (INHALER) IH PRN (15:55)
[2021-05-09] MEDS ORDERED: METHOCARBAMOL 500 MG TABLET PO PRN (15:55)
[2021-05-09] MEDS ORDERED: THIAMINE HCL 100 MG TABLET (FP) PO SCH (22:00)
[2021-05-09] MEDS ORDERED: MELATONIN 5 MG TABLETS PO SCH (22:00)
[2021-05-09] MEDS: hydrOXYzine PAMOATE 25 MG CAPSULE (FP) PO SCH ×2 (22:46→23:34)
[2021-05-09] MEDS: PRENATAL VITAMINS W/ FOLIC ACID TABLET (FP) PO SCH (22:47)
[2021-05-10] MEDS: hydrOXYzine PAMOATE 25 MG CAPSULE (FP) PO SCH ×2 (06:28→13:07)
[2021-05-10 08:41] VITALS: BP 127/75; PULSE 55; TEMP 96.9
[2021-05-10] MEDS ORDERED: diazePAM 5 MG TABLET PO PRN (09:17)
[2021-05-10 10:09] LABS: HEMATOCRIT 37.6 % (35.4-49); HEMOGLOBIN 13.2 GM/dL (11.7-16.9); MCH 30.4 pg (25.7-33.7); MCHC 35.2 g/dl (32.0-35.9); MEAN CELL VOLUME 86.5 fl (80-96); MEAN PLT VOLUME 9.3 fl (7.5-11.1); PLATELET COUNT 37 10^3/uL (134-434); RBC 4.35 M/mm3 (4.00-5.60); RDW 13.3 % (11.9-15.9); WHITE BLOOD COUNT 4.3 K/mm3 (4.0-10.0)
[2021-05-10 10:22] LABS: CALCIUM 8.7 mg/dL (8.5-10.1)
[2021-05-10 10:23] LABS: BLOOD UREA NITROGEN 17.4 mg/dL (7-18)
[2021-05-10 10:24] LABS: ALBUMIN 3.2 g/dl (3.4-5.0)
[2021-05-10 10:28] LABS: BILIRUBIN,TOTAL 0.5 mg/dL (0.2-1); TOT PROT 7.6 g/dl (6.4-8.2)
[2021-05-10] MEDS: PRENATAL VITAMINS W/ FOLIC ACID TABLET (FP) PO SCH (13:07)
[2021-05-11] MEDS ORDERED: methaDONE HCL 10 MG TABLET (FOR DETOX USE ONLY) PO ONE (10:00)
[2021-05-13] MEDS ORDERED: methaDONE HCL 10 MG TABLET (FOR DETOX USE ONLY) PO ONE (10:00)
== END 2021-05-10 08:23 | disposition left against medical advice (07) | DRG 770 ==
LOC: YASAS 11:57 → Y3N 21:43
PROVIDERS: ADMIT Allergy & Immunology; ATTEND Allergy & Immunology
PROC: HZ2ZZZZ Detoxification Services for Substance Abuse Treatment (ICD-10-PCS; principal; 2021-05-09)
DX: F11.23 Opioid dependence with withdrawal (principal); F10.230 Alcohol dependence with withdrawal, uncomplicated; F17.210 Nicotine dependence, cigarettes, uncomplicated; Z21 Asymptomatic human immunodeficiency virus [HIV] infection status; Z86.19 Personal history of other infectious and parasitic diseases
CPT/HCPCS: 36415; 80053; 85027; 86780; C9803; J0735; U0003; U0005

== ENCOUNTER 2022-05-09 18:03 | Inpatient (IN) | payer OTHER ==
[2022-05-09 18:49] VITALS: BMI 25.0
[2022-05-09] MEDS ORDERED: IBUPROFEN 600 MG TABLET (FP) PO PRN (19:30)
[2022-05-09] MEDS ORDERED: DICYCLOMINE HCL 10 MG CAPSULE PO PRN (19:30)
[2022-05-09] MEDS ORDERED: LORazepam 1 MG TABLET PO PRN (19:30)
[2022-05-09] MEDS ORDERED: MAGNESIUM CITRATE 300 ML BOTTLE PO PRN (19:30)
[2022-05-09] MEDS ORDERED: MAGNESIUM HYDROX 2400MG/30ML ORAL SUSPENSION 30 ML CUP PO PRN (19:30)
[2022-05-09] MEDS ORDERED: BENZOCAINE/MENTHOL (CHLORASEPTIC ) LOZENGE MM PRN (19:30)
[2022-05-09] MEDS ORDERED: BISMUTH SUBSALICYLATE 524 MG/30 ML PO PRN (19:30)
[2022-05-09] MEDS ORDERED: ACETAMINOPHEN 325 MG TABLET (FP) PO PRN ×2 (19:30)
[2022-05-09] MEDS ORDERED: LOPERAMIDE HCL 2 MG CAPSULE PO PRN (19:30)
[2022-05-09] MEDS ORDERED: methaDONE HCL 10 MG TABLET (FOR DETOX USE ONLY) PO ONE (19:30)
[2022-05-09] MEDS ORDERED: ONDANSETRON *ODT* 4 MG TABLET SL PRN (19:30)
[2022-05-09] MEDS ORDERED: MAG HYDROX/AL HYDROX/SIMETH 30 ML UNIT-DOSE CUP PO PRN (19:30)
[2022-05-09] MEDS ORDERED: IBUPROFEN 400 MG TABLET (FP) PO PRN (19:30)
[2022-05-09] MEDS ORDERED: cloNIDine HCL 0.1 MG TABLET PO PRN (19:30)
[2022-05-09] MEDS ORDERED: chlordiazePOXIDE HCL 25 MG CAPSULE PO PRN (19:57)
[2022-05-09] MEDS ORDERED: LORazepam 2 MG TABLET PO SCH (23:00)
[2022-05-10] MEDS: THIAMINE HCL 100 MG TABLET (FP) PO SCH ×2 (01:55→22:12)
[2022-05-10] MEDS: hydrOXYzine PAMOATE 25 MG CAPSULE (FP) PO SCH ×6 (01:55→22:12)
[2022-05-10] MEDS: MELATONIN 5 MG TABLETS PO SCH ×2 (01:55→22:12)
[2022-05-10] MEDS: chlordiazePOXIDE HCL 25 MG CAPSULE PO SCH ×5 (03:38→22:12)
[2022-05-10] MEDS: PRENATAL VITAMINS W/ FOLIC ACID TABLET (FP) PO SCH ×2 (03:39→12:16)
[2022-05-10] MEDS ORDERED: hydrOXYzine PAMOATE 25 MG CAPSULE (FP) PO ONE ×2 (04:03→10:31)
[2022-05-10] MEDS ORDERED: chlordiazePOXIDE HCL 25 MG CAPSULE ONE ×2 (04:03→10:30)
[2022-05-10] MEDS ORDERED: cloNIDine HCL 0.1 MG TABLET PO PRN (10:20)
[2022-05-10] MEDS ORDERED: methaDONE HCL 10 MG TABLET (FOR DETOX USE ONLY) PO ONE (10:20)
[2022-05-10] MEDS ORDERED: methaDONE HCL 10 MG TABLET (FOR DETOX USE ONLY) ONE (10:30)
[2022-05-10] MEDS ORDERED: cloNIDine HCL 0.1 MG TABLET ONE (10:31)
[2022-05-10 10:50] LABS: HEMATOCRIT 36.9 % (35.4-49); HEMOGLOBIN 12.4 GM/dL (11.7-16.9); MCH 29.9 pg (25.7-33.7); MCHC 33.5 g/dl (32.0-35.9); MEAN CELL VOLUME 89.3 fl (80-96); MEAN PLT VOLUME 8.9 fl (7.5-11.1); PLATELET COUNT 144 10^3/uL (134-434); RBC 4.13 M/mm3 (4.00-5.60); WHITE BLOOD COUNT 5.3 K/mm3 (4.0-10.0)
[2022-05-10 11:03] LABS: BLOOD UREA NITROGEN 14.1 mg/dL (7-18)
[2022-05-10 11:04] LABS: CALCIUM 8.5 mg/dL (8.5-10.1)
[2022-05-10 11:05] LABS: ALBUMIN 2.9 g/dl (3.4-5.0)
[2022-05-10 11:06] LABS: CREATININE 0.9 mg/dL (0.55-1.3)
[2022-05-10 11:08] LABS: TOT PROT 6.4 g/dl (6.4-8.2)
[2022-05-10 11:12] LABS: BILIRUBIN,TOTAL 0.1 mg/dL (0.2-1)
[2022-05-10] MEDS: METHOCARBAMOL 500 MG TABLET PO PRN ×2 (12:15→17:43)
[2022-05-10] MEDS: NICOTINE 21 MG/24 HOURS TOPICAL PATCH TD SCH (12:16)
[2022-05-11] MEDS ORDERED: LORazepam 1 MG TABLET PO SCH (05:00)
[2022-05-11] MEDS: hydrOXYzine PAMOATE 25 MG CAPSULE (FP) PO SCH ×4 (05:28→18:02)
[2022-05-11] MEDS: chlordiazePOXIDE HCL 25 MG CAPSULE PO SCH ×3 (05:28→18:02)
[2022-05-11] MEDS ORDERED: methaDONE HCL 10 MG TABLET (FOR DETOX USE ONLY) PO ONE (10:00)
[2022-05-11] MEDS: PRENATAL VITAMINS W/ FOLIC ACID TABLET (FP) PO SCH (10:08)
[2022-05-11] MEDS: METHOCARBAMOL 500 MG TABLET PO PRN (10:08)
[2022-05-11] MEDS: NICOTINE 21 MG/24 HOURS TOPICAL PATCH TD SCH (10:09)
[2022-05-11 14:05] VITALS: RESP 18
[2022-05-12] MEDS ORDERED: chlordiazePOXIDE HCL 10 MG CAPSULE PO PRN
[2022-05-12] MEDS ORDERED: LORazepam 0.5 MG TABLET PO PRN
[2022-05-12] MEDS: THIAMINE HCL 100 MG TABLET (FP) PO SCH (01:07)
[2022-05-12] MEDS: chlordiazePOXIDE HCL 25 MG CAPSULE PO SCH (01:07)
[2022-05-12] MEDS: hydrOXYzine PAMOATE 25 MG CAPSULE (FP) PO SCH ×2 (01:07→07:06)
[2022-05-12] MEDS: MELATONIN 5 MG TABLETS PO SCH (01:07)
[2022-05-12] MEDS ORDERED: chlordiazePOXIDE HCL 10 MG CAPSULE PO SCH (05:00)
[2022-05-12] MEDS ORDERED: LORazepam 0.5 MG TABLET PO SCH (05:00)
[2022-05-12] MEDS ORDERED: methaDONE HCL 10 MG TABLET (FOR DETOX USE ONLY) PO ONE (10:00)
[2022-05-12 11:13] VITALS: BP 137/89; PULSE 70; TEMP 97.8
[2022-05-13] MEDS ORDERED: LORazepam 0.5 MG TABLET PO ONE (05:00)
[2022-05-13] MEDS ORDERED: chlordiazePOXIDE HCL 10 MG CAPSULE PO SCH (05:00)
[2022-05-13] MEDS ORDERED: methaDONE HCL 10 MG TABLET (FOR DETOX USE ONLY) PO ONE (10:00)
[2022-05-14] MEDS ORDERED: chlordiazePOXIDE HCL 10 MG CAPSULE PO ONE (05:00)
[2022-05-14] MEDS ORDERED: methaDONE HCL 10 MG TABLET (FOR DETOX USE ONLY) PO ONE (10:00)
== END 2022-05-12 09:48 | disposition left against medical advice (07) | DRG 770 ==
LOC: YASAS 18:03 → SUATTDRO 18:03 → Y6N 05-10 11:52
PROVIDERS: ADMIT Allergy & Immunology; ATTEND Surgery
PROC: HZ2ZZZZ Detoxification Services for Substance Abuse Treatment (ICD-10-PCS; principal; 2022-05-10)
DX: F11.23 Opioid dependence with withdrawal (principal); F10.230 Alcohol dependence with withdrawal, uncomplicated; F17.210 Nicotine dependence, cigarettes, uncomplicated; F41.9 Anxiety disorder, unspecified; F32.A Depression, unspecified; Z21 Asymptomatic human immunodeficiency virus [HIV] infection status; R63.4 Abnormal weight loss; Z86.19 Personal history of other infectious and parasitic diseases
CPT/HCPCS: 36415; 80053; 85027; 86780; C9803-CS; J0735; U0003; U0005

== ENCOUNTER 2022-06-11 14:21 | Inpatient (IN) | payer OTHER ==
[2022-06-11 17:52] VITALS: BMI 25.8
[2022-06-11] MEDS ORDERED: ACETAMINOPHEN 325 MG TABLET (FP) PO PRN ×2 (19:09)
[2022-06-11] MEDS ORDERED: methaDONE HCL 10 MG TABLET (FOR DETOX USE ONLY) PO ONE (19:09)
[2022-06-11] MEDS ORDERED: NICOTINE 10 MG CARTRIDGE (INHALER) IH PRN (19:09)
[2022-06-11] MEDS ORDERED: IBUPROFEN 400 MG TABLET (FP) PO PRN (19:09)
[2022-06-11] MEDS ORDERED: MAGNESIUM HYDROX 2400MG/30ML ORAL SUSPENSION 30 ML CUP PO PRN (19:09)
[2022-06-11] MEDS ORDERED: MAGNESIUM CITRATE 300 ML BOTTLE PO PRN (19:09)
[2022-06-11] MEDS ORDERED: MAG HYDROX/AL HYDROX/SIMETH 30 ML UNIT-DOSE CUP PO PRN (19:09)
[2022-06-11] MEDS ORDERED: LOPERAMIDE HCL 2 MG CAPSULE PO PRN (19:09)
[2022-06-11] MEDS ORDERED: chlordiazePOXIDE HCL 25 MG CAPSULE PO PRN (19:09)
[2022-06-11] MEDS ORDERED: BISMUTH SUBSALICYLATE 524 MG/30 ML PO PRN (19:09)
[2022-06-11] MEDS ORDERED: ONDANSETRON *ODT* 4 MG TABLET SL PRN (19:09)
[2022-06-11] MEDS ORDERED: DICYCLOMINE HCL 10 MG CAPSULE PO PRN (19:09)
[2022-06-11] MEDS ORDERED: IBUPROFEN 600 MG TABLET (FP) PO PRN (19:09)
[2022-06-11] MEDS ORDERED: BENZOCAINE/MENTHOL (CHLORASEPTIC ) LOZENGE MM PRN (19:09)
[2022-06-11] MEDS ORDERED: cloNIDine HCL 0.1 MG TABLET PO PRN (19:09)
[2022-06-11] MEDS ORDERED: MELATONIN 5 MG TABLETS PO SCH (22:00)
[2022-06-11] MEDS: hydrOXYzine PAMOATE 25 MG CAPSULE (FP) PO SCH (22:18)
[2022-06-11] MEDS: THIAMINE HCL 100 MG TABLET (FP) PO SCH (22:18)
[2022-06-11] MEDS: CLOTRIMAZOLE 1% CREAM TP SCH (22:43)
[2022-06-11] MEDS: chlordiazePOXIDE HCL 25 MG CAPSULE PO SCH (23:28)
[2022-06-12] MEDS: chlordiazePOXIDE HCL 25 MG CAPSULE PO SCH ×4 (05:30→22:26)
[2022-06-12] MEDS: hydrOXYzine PAMOATE 25 MG CAPSULE (FP) PO SCH ×5 (05:30→22:26)
[2022-06-12] MEDS: BACITRACIN 0.9 GM PACKET TP SCH (10:21)
[2022-06-12] MEDS: CLOTRIMAZOLE 1% CREAM TP SCH ×2 (10:23→23:26)
[2022-06-12] MEDS: METHOCARBAMOL 500 MG TABLET PO PRN (10:23)
[2022-06-12] MEDS: PRENATAL VITAMINS W/ FOLIC ACID TABLET (FP) PO SCH (10:24)
[2022-06-12 14:03] LABS: HEMATOCRIT 38.9 % (35.4-49); MCH 29.8 pg (25.7-33.7); MCHC 33.4 g/dl (32.0-35.9); MEAN CELL VOLUME 89.2 fl (80-96); MEAN PLT VOLUME 8.8 fl (7.5-11.1); PLATELET COUNT 178 10^3/uL (134-434); RBC 4.36 M/mm3 (4.00-5.60); RDW 14.2 % (11.9-15.9); WHITE BLOOD COUNT 4.7 K/mm3 (4.0-10.0)
[2022-06-12 14:11] LABS: BLOOD UREA NITROGEN 28.6 mg/dL (7-18)
[2022-06-12 14:13] LABS: CALCIUM 8.7 mg/dL (8.5-10.1)
[2022-06-12 14:14] LABS: ALBUMIN 3.1 g/dl (3.4-5.0)
[2022-06-12 14:17] LABS: CREATININE 1.4 mg/dL (0.55-1.3)
[2022-06-12 14:18] LABS: BILIRUBIN,TOTAL 0.2 mg/dL (0.2-1); TOT PROT 6.9 g/dl (6.4-8.2)
[2022-06-12] MEDS: BICTEGRAV/EMTRICIT/TENOFOV (BIKTARVY) 50-200-25 MG TABLET PO SCH (17:58)
[2022-06-12 18:37] LABS: HIV INTERPRETATION PRESUMPTIVE POSITIVE (NEGATIVE)
[2022-06-12] MEDS: THIAMINE HCL 100 MG TABLET (FP) PO SCH (22:26)
[2022-06-12] MEDS: SUVOREXANT 10 MG TABLET PO PRN (22:30)
[2022-06-13] MEDS: hydrOXYzine PAMOATE 25 MG CAPSULE (FP) PO SCH ×5 (05:16→22:50)
[2022-06-13] MEDS: chlordiazePOXIDE HCL 25 MG CAPSULE PO SCH ×4 (05:17→22:50)
[2022-06-13 09:41] LABS: BLOOD UREA NITROGEN 20.3 mg/dL (7-18)
[2022-06-13 09:44] LABS: CREATININE 1.1 mg/dL (0.55-1.3)
[2022-06-13] MEDS ORDERED: methaDONE HCL 10 MG TABLET (FOR DETOX USE ONLY) PO ONE (10:00)
[2022-06-13] MEDS: PRENATAL VITAMINS W/ FOLIC ACID TABLET (FP) PO SCH (10:30)
[2022-06-13] MEDS: BACITRACIN 0.9 GM PACKET TP SCH (10:30)
[2022-06-13] MEDS: BICTEGRAV/EMTRICIT/TENOFOV (BIKTARVY) 50-200-25 MG TABLET PO SCH (10:30)
[2022-06-13] MEDS: CLOTRIMAZOLE 1% CREAM TP SCH ×2 (10:31→22:50)
[2022-06-13] MEDS: METHOCARBAMOL 500 MG TABLET PO PRN (10:31)
[2022-06-13] MEDS: THIAMINE HCL 100 MG TABLET (FP) PO SCH (22:50)
[2022-06-14] MEDS ORDERED: chlordiazePOXIDE HCL 10 MG CAPSULE PO PRN
[2022-06-14] MEDS: hydrOXYzine PAMOATE 25 MG CAPSULE (FP) PO SCH ×5 (06:08→22:21)
[2022-06-14] MEDS: chlordiazePOXIDE HCL 10 MG CAPSULE PO SCH ×4 (06:12→22:21)
[2022-06-14] MEDS: METHOCARBAMOL 500 MG TABLET PO PRN (10:11)
[2022-06-14] MEDS: PRENATAL VITAMINS W/ FOLIC ACID TABLET (FP) PO SCH (10:11)
[2022-06-14] MEDS: BICTEGRAV/EMTRICIT/TENOFOV (BIKTARVY) 50-200-25 MG TABLET PO SCH (10:11)
[2022-06-14] MEDS: CLOTRIMAZOLE 1% CREAM TP SCH ×2 (10:13→22:46)
[2022-06-14] MEDS: BACITRACIN 0.9 GM PACKET TP SCH (10:13)
[2022-06-14] MEDS ORDERED: cloNIDine HCL 0.1 MG TABLET PO PRN (13:30)
[2022-06-14] MEDS: SUVOREXANT 10 MG TABLET PO PRN (22:20)
[2022-06-14] MEDS: THIAMINE HCL 100 MG TABLET (FP) PO SCH (22:21)
[2022-06-14 22:23] VITALS: TEMP 97.7
[2022-06-15] MEDS ORDERED: chlordiazePOXIDE HCL 10 MG CAPSULE PO SCH (05:00)
[2022-06-15] MEDS: hydrOXYzine PAMOATE 25 MG CAPSULE (FP) PO SCH ×2 (06:02→10:47)
[2022-06-15 06:25] VITALS: BP 123/62; PULSE 47; RESP 18
[2022-06-15] MEDS ORDERED: methaDONE HCL 10 MG TABLET (FOR DETOX USE ONLY) PO ONE (10:00)
[2022-06-15] MEDS: BACITRACIN 0.9 GM PACKET TP SCH (10:46)
[2022-06-15] MEDS: PRENATAL VITAMINS W/ FOLIC ACID TABLET (FP) PO SCH (10:47)
[2022-06-15] MEDS: CLOTRIMAZOLE 1% CREAM TP SCH (10:47)
[2022-06-15] MEDS: BICTEGRAV/EMTRICIT/TENOFOV (BIKTARVY) 50-200-25 MG TABLET PO SCH (10:47)
[2022-06-16] MEDS ORDERED: chlordiazePOXIDE HCL 10 MG CAPSULE PO ONE (05:00)
== END 2022-06-15 10:13 | disposition left against medical advice (07) | DRG 770 ==
LOC: YASAS 14:21 → Y6N 19:45
PROVIDERS: ADMIT Allergy & Immunology; ATTEND Surgery
PROC: HZ2ZZZZ Detoxification Services for Substance Abuse Treatment (ICD-10-PCS; principal; 2022-06-11)
DX: F11.23 Opioid dependence with withdrawal (principal); F10.230 Alcohol dependence with withdrawal, uncomplicated; F14.10 Cocaine abuse, uncomplicated; F17.210 Nicotine dependence, cigarettes, uncomplicated; F19.280 Other psychoactive substance dependence with psychoactive substance-induced anxiety disorder; F19.282 Other psychoactive substance dependence with psychoactive substance-induced sleep disorder; Z21 Asymptomatic human immunodeficiency virus [HIV] infection status; Z86.19 Personal history of other infectious and parasitic diseases
CPT/HCPCS: 36415; 80053; 82565; 84520; 85027; 86780; 87389; C9803-CS; U0003; U0005

== ENCOUNTER 2022-08-06 15:24 | Inpatient (IN) | payer OTHER ==
[2022-08-06 17:00] VITALS: BMI 24.2
[2022-08-06] MEDS ORDERED: BISMUTH SUBSALICYLATE 524 MG/30 ML PO PRN (17:49)
[2022-08-06] MEDS ORDERED: NICOTINE 10 MG CARTRIDGE (INHALER) IH PRN (17:49)
[2022-08-06] MEDS ORDERED: BENZOCAINE/MENTHOL (CHLORASEPTIC ) LOZENGE MM PRN (17:49)
[2022-08-06] MEDS ORDERED: methaDONE HCL 10 MG TABLET (FOR DETOX USE ONLY) PO ONE (17:49)
[2022-08-06] MEDS ORDERED: ONDANSETRON *ODT* 4 MG TABLET SL PRN (17:49)
[2022-08-06] MEDS ORDERED: MAGNESIUM CITRATE 300 ML BOTTLE PO PRN (17:49)
[2022-08-06] MEDS ORDERED: NALOXONE HCL (KLOXXADO) 8 MG SPRAY NS PRN (17:49)
[2022-08-06] MEDS ORDERED: ACETAMINOPHEN 325 MG TABLET (FP) PO PRN ×2 (17:49)
[2022-08-06] MEDS ORDERED: LOPERAMIDE HCL 2 MG CAPSULE PO PRN (17:49)
[2022-08-06] MEDS ORDERED: IBUPROFEN 400 MG TABLET (FP) PO PRN (17:49)
[2022-08-06] MEDS ORDERED: MAG HYDROX/AL HYDROX/SIMETH 30 ML UNIT-DOSE CUP PO PRN (17:49)
[2022-08-06] MEDS ORDERED: MAGNESIUM HYDROX 2400MG/30ML ORAL SUSPENSION 30 ML CUP PO PRN (17:49)
[2022-08-06] MEDS ORDERED: DICYCLOMINE HCL 10 MG CAPSULE PO PRN (17:49)
[2022-08-06] MEDS ORDERED: ALBUTEROL SO4 HFA INHALER IH PRN (18:07)
[2022-08-06] MEDS: CLOTRIMAZOLE 1% CREAM TP SCH (22:13)
[2022-08-06] MEDS: MELATONIN 5 MG TABLETS PO SCH (22:14)
[2022-08-06] MEDS: THIAMINE HCL 100 MG TABLET (FP) PO SCH (22:14)
[2022-08-06] MEDS: chlordiazePOXIDE HCL 25 MG CAPSULE PO PRN (22:16)
[2022-08-07] MEDS: BICTEGRAV/EMTRICIT/TENOFOV (BIKTARVY) 50-200-25 MG TABLET PO SCH (10:04)
[2022-08-07] MEDS: chlordiazePOXIDE HCL 25 MG CAPSULE PO PRN ×3 (10:04→22:12)
[2022-08-07] MEDS: PRENATAL VITAMINS W/ FOLIC ACID TABLET (FP) PO SCH (10:04)
[2022-08-07] MEDS: CLOTRIMAZOLE 1% CREAM TP SCH ×2 (10:04→22:13)
[2022-08-07] MEDS: NICOTINE 21 MG/24 HOURS TOPICAL PATCH TD SCH (10:04)
[2022-08-07] MEDS: SUVOREXANT 10 MG TABLET PO PRN (22:10)
[2022-08-07] MEDS: MELATONIN 5 MG TABLETS PO SCH (22:13)
[2022-08-07] MEDS: THIAMINE HCL 100 MG TABLET (FP) PO SCH (22:13)
[2022-08-08] MEDS ORDERED: methaDONE HCL 10 MG TABLET (FOR DETOX USE ONLY) PO ONE (10:00)
[2022-08-08] MEDS: BICTEGRAV/EMTRICIT/TENOFOV (BIKTARVY) 50-200-25 MG TABLET PO SCH (10:07)
[2022-08-08] MEDS: PRENATAL VITAMINS W/ FOLIC ACID TABLET (FP) PO SCH (10:07)
[2022-08-08] MEDS: CLOTRIMAZOLE 1% CREAM TP SCH ×2 (10:07→23:57)
[2022-08-08] MEDS: chlordiazePOXIDE HCL 25 MG CAPSULE PO PRN (10:09)
[2022-08-08] MEDS: NICOTINE 21 MG/24 HOURS TOPICAL PATCH TD SCH (10:11)
[2022-08-08] MEDS: hydrOXYzine PAMOATE 25 MG CAPSULE (FP) PO PRN (12:16)
[2022-08-08] MEDS: IBUPROFEN 600 MG TABLET (FP) PO PRN (12:16)
[2022-08-08] MEDS: METHOCARBAMOL 500 MG TABLET PO PRN ×2 (12:17→22:28)
[2022-08-08] MEDS: cloNIDine HCL 0.1 MG TABLET PO PRN ×2 (12:18→22:28)
[2022-08-08] MEDS: MELATONIN 5 MG TABLETS PO SCH (22:26)
[2022-08-08] MEDS: THIAMINE HCL 100 MG TABLET (FP) PO SCH (22:26)
[2022-08-08] MEDS: SUVOREXANT 10 MG TABLET PO PRN (22:27)
[2022-08-09] MEDS: hydrOXYzine PAMOATE 25 MG CAPSULE (FP) PO PRN ×2 (07:23→10:25)
[2022-08-09] MEDS: BICTEGRAV/EMTRICIT/TENOFOV (BIKTARVY) 50-200-25 MG TABLET PO SCH (10:22)
[2022-08-09] MEDS: PRENATAL VITAMINS W/ FOLIC ACID TABLET (FP) PO SCH (10:22)
[2022-08-09] MEDS: chlordiazePOXIDE HCL 25 MG CAPSULE PO PRN ×2 (10:24→22:18)
[2022-08-09] MEDS: IBUPROFEN 600 MG TABLET (FP) PO PRN (10:25)
[2022-08-09] MEDS: NICOTINE 21 MG/24 HOURS TOPICAL PATCH TD SCH (11:25)
[2022-08-09] MEDS: CLOTRIMAZOLE 1% CREAM TP SCH (11:25)
[2022-08-09 11:59] LABS: HEMATOCRIT 43.6 % (35.4-49); HEMOGLOBIN 14.9 GM/dL (11.7-16.9); MCH 30.7 pg (25.7-33.7); MCHC 34.3 g/dl (32.0-35.9); MEAN CELL VOLUME 89.6 fl (80-96); MEAN PLT VOLUME 8.8 fl (7.5-11.1); PLATELET COUNT 187 10^3/uL (134-434); RBC 4.86 M/mm3 (4.00-5.60); RDW 13.7 % (11.9-15.9); WHITE BLOOD COUNT 5.5 K/mm3 (4.0-10.0)
[2022-08-09 12:48] LABS: ALBUMIN 3.5 g/dl (3.4-5.0); CALCIUM 9.1 mg/dL (8.5-10.1)
[2022-08-09 12:49] LABS: BLOOD UREA NITROGEN 15.5 mg/dL (7-18)
[2022-08-09 12:52] LABS: CREATININE 0.9 mg/dL (0.55-1.3)
[2022-08-09 12:53] LABS: BILIRUBIN,TOTAL 0.3 mg/dL (0.2-1); TOT PROT 7.3 g/dl (6.4-8.2)
[2022-08-09] MEDS: METHOCARBAMOL 500 MG TABLET PO PRN ×2 (15:41→22:18)
[2022-08-09] MEDS: MELATONIN 5 MG TABLETS PO SCH (22:19)
[2022-08-09] MEDS: SUVOREXANT 10 MG TABLET PO PRN (22:25)
[2022-08-09] MEDS: THIAMINE HCL 100 MG TABLET (FP) PO SCH (23:08)
[2022-08-10] MEDS ORDERED: methaDONE HCL 10 MG TABLET (FOR DETOX USE ONLY) PO ONE (10:00)
[2022-08-10] MEDS: BICTEGRAV/EMTRICIT/TENOFOV (BIKTARVY) 50-200-25 MG TABLET PO SCH (10:25)
[2022-08-10] MEDS: METHOCARBAMOL 500 MG TABLET PO PRN ×2 (10:25→22:37)
[2022-08-10] MEDS: CLOTRIMAZOLE 1% CREAM TP SCH ×3 (10:25→22:54)
[2022-08-10] MEDS: hydrOXYzine PAMOATE 25 MG CAPSULE (FP) PO PRN ×2 (10:25→22:38)
[2022-08-10] MEDS: chlordiazePOXIDE HCL 25 MG CAPSULE PO PRN (10:26)
[2022-08-10] MEDS: NICOTINE 21 MG/24 HOURS TOPICAL PATCH TD SCH (10:26)
[2022-08-10] MEDS: PRENATAL VITAMINS W/ FOLIC ACID TABLET (FP) PO SCH (10:26)
[2022-08-10] MEDS: THIAMINE HCL 100 MG TABLET (FP) PO SCH (22:37)
[2022-08-10] MEDS: MELATONIN 5 MG TABLETS PO SCH (22:37)
[2022-08-11] MEDS: hydrOXYzine PAMOATE 25 MG CAPSULE (FP) PO PRN ×2 (06:16→10:33)
[2022-08-11 06:29] VITALS: RESP 18
[2022-08-11 09:06] VITALS: BP 126/82; PULSE 66; TEMP 97.7
[2022-08-11] MEDS: CLOTRIMAZOLE 1% CREAM TP SCH (10:33)
[2022-08-11] MEDS: PRENATAL VITAMINS W/ FOLIC ACID TABLET (FP) PO SCH (10:33)
[2022-08-11] MEDS: BICTEGRAV/EMTRICIT/TENOFOV (BIKTARVY) 50-200-25 MG TABLET PO SCH (10:33)
[2022-08-11] MEDS: NICOTINE 21 MG/24 HOURS TOPICAL PATCH TD SCH (10:34)
== END 2022-08-11 11:17 | disposition other institution (70) | DRG 773 ==
LOC: YASAS 15:24 → Y3N 18:08
PROVIDERS: ADMIT Allergy & Immunology; ATTEND Surgery
PROC: HZ2ZZZZ Detoxification Services for Substance Abuse Treatment (ICD-10-PCS; principal; 2022-08-06)
DX: F11.23 Opioid dependence with withdrawal (principal); F10.230 Alcohol dependence with withdrawal, uncomplicated; F14.10 Cocaine abuse, uncomplicated; F12.10 Cannabis abuse, uncomplicated; F17.210 Nicotine dependence, cigarettes, uncomplicated; Z21 Asymptomatic human immunodeficiency virus [HIV] infection status; G47.00 Insomnia, unspecified; J45.909 Unspecified asthma, uncomplicated; B18.2 Chronic viral hepatitis C; R73.9 Hyperglycemia, unspecified
CPT/HCPCS: 36415; 72100-TC-FY; 73502-TC-RT-FY; 80053; 85027; 86780; 93005; 93010; C9803-CS; U0003; U0005

== ENCOUNTER 2022-09-07 13:38 | Inpatient (IN) | payer OTHER ==
[2022-09-07 15:00] VITALS: BMI 25.2
[2022-09-07] MEDS ORDERED: cloNIDine HCL 0.1 MG TABLET PO PRN (15:43)
[2022-09-07] MEDS ORDERED: NICOTINE 10 MG CARTRIDGE (INHALER) IH PRN (15:43)
[2022-09-07] MEDS ORDERED: IBUPROFEN 400 MG TABLET (FP) PO PRN (15:43)
[2022-09-07] MEDS ORDERED: DICYCLOMINE HCL 10 MG CAPSULE PO PRN (15:43)
[2022-09-07] MEDS ORDERED: NALOXONE HCL (KLOXXADO) 8 MG SPRAY NS PRN (15:43)
[2022-09-07] MEDS ORDERED: BISMUTH SUBSALICYLATE 524 MG/30 ML PO PRN (15:43)
[2022-09-07] MEDS ORDERED: METHOCARBAMOL 500 MG TABLET PO PRN (15:43)
[2022-09-07] MEDS ORDERED: IBUPROFEN 600 MG TABLET (FP) PO PRN (15:43)
[2022-09-07] MEDS ORDERED: ONDANSETRON *ODT* 4 MG TABLET SL PRN (15:43)
[2022-09-07] MEDS ORDERED: MAG HYDROX/AL HYDROX/SIMETH 30 ML UNIT-DOSE CUP PO PRN (15:43)
[2022-09-07] MEDS ORDERED: diazePAM 5 MG TABLET PO PRN (15:43)
[2022-09-07] MEDS ORDERED: ACETAMINOPHEN 325 MG TABLET (FP) PO PRN ×2 (15:43)
[2022-09-07] MEDS ORDERED: BENZOCAINE/MENTHOL (CHLORASEPTIC ) LOZENGE MM PRN (15:43)
[2022-09-07] MEDS ORDERED: MAGNESIUM HYDROX 2400MG/30ML ORAL SUSPENSION 30 ML CUP PO PRN (15:43)
[2022-09-07] MEDS ORDERED: hydrOXYzine PAMOATE 25 MG CAPSULE (FP) PO PRN (15:43)
[2022-09-07] MEDS ORDERED: POLYETHYLENE GLYCOL (HEALTHYLAX) 3350 17 GM PACKET PO PRN (15:43)
[2022-09-07] MEDS ORDERED: LOPERAMIDE HCL 2 MG CAPSULE PO PRN (15:43)
[2022-09-07] MEDS ORDERED: ALBUTEROL SO4 HFA INHALER IH PRN (15:49)
[2022-09-07] MEDS ORDERED: methaDONE HCL 10 MG TABLET (FOR DETOX USE ONLY) ONE (16:55)
[2022-09-07] MEDS ORDERED: diazePAM 5 MG TABLET ONE (16:57)
[2022-09-07] MEDS ORDERED: methaDONE HCL 10 MG TABLET (FOR DETOX USE ONLY) PO ONE (17:00)
[2022-09-07] MEDS: NICOTINE 21 MG/24 HOURS TOPICAL PATCH TD SCH ×2 (17:01→17:25)
[2022-09-07] MEDS: diazePAM 5 MG TABLET PO SCH ×2 (17:03→22:29)
[2022-09-07] MEDS: MELATONIN 5 MG TABLETS PO SCH (22:29)
[2022-09-07] MEDS: THIAMINE HCL 100 MG TABLET (FP) PO SCH (22:29)
[2022-09-08] MEDS: diazePAM 5 MG TABLET PO SCH ×4 (06:03→22:28)
[2022-09-08] MEDS: BICTEGRAV/EMTRICIT/TENOFOV (BIKTARVY) 50-200-25 MG TABLET PO SCH (10:26)
[2022-09-08] MEDS: PRENATAL VITAMINS W/ FOLIC ACID TABLET (FP) PO SCH (10:26)
[2022-09-08] MEDS: NICOTINE 21 MG/24 HOURS TOPICAL PATCH TD SCH (10:27)
[2022-09-08 11:12] LABS: HEMATOCRIT 39.2 % (35.4-49); HEMOGLOBIN 12.9 GM/dL (11.7-16.9); MCH 30.6 pg (25.7-33.7); MCHC 32.9 g/dl (32.0-35.9); PLATELET COUNT 158 10^3/uL (134-434); RBC 4.22 M/mm3 (4.00-5.60); RDW 15.3 % (11.9-15.9); WHITE BLOOD COUNT 7.8 K/mm3 (4.0-10.0)
[2022-09-08 12:26] LABS: ALBUMIN 3.1 g/dl (3.4-5.0); BLOOD UREA NITROGEN 16.7 mg/dL (7-18)
[2022-09-08 12:27] LABS: CALCIUM 8.5 mg/dL (8.5-10.1)
[2022-09-08 12:30] LABS: CREATININE 0.9 mg/dL (0.55-1.3)
[2022-09-08 12:32] LABS: BILIRUBIN,TOTAL 0.3 mg/dL (0.2-1); TOT PROT 6.3 g/dl (6.4-8.2)
[2022-09-08] MEDS: MELATONIN 5 MG TABLETS PO SCH (22:28)
[2022-09-08] MEDS: THIAMINE HCL 100 MG TABLET (FP) PO SCH (22:28)
[2022-09-09] MEDS ORDERED: diazePAM 5 MG TABLET PO SCH (06:00)
[2022-09-09 08:53] VITALS: BP 148/80; PULSE 66; RESP 16; TEMP 98
[2022-09-09] MEDS ORDERED: methaDONE HCL 10 MG TABLET (FOR DETOX USE ONLY) PO ONE (10:00)
[2022-09-09] MEDS: PRENATAL VITAMINS W/ FOLIC ACID TABLET (FP) PO SCH (10:33)
[2022-09-09] MEDS: NICOTINE 21 MG/24 HOURS TOPICAL PATCH TD SCH (10:33)
[2022-09-09] MEDS: BICTEGRAV/EMTRICIT/TENOFOV (BIKTARVY) 50-200-25 MG TABLET PO SCH (10:33)
[2022-09-10] MEDS ORDERED: diazePAM 5 MG TABLET PO SCH (06:00)
[2022-09-11] MEDS ORDERED: diazePAM 5 MG TABLET PO ONE (06:00)
[2022-09-11] MEDS ORDERED: methaDONE HCL 10 MG TABLET (FOR DETOX USE ONLY) PO ONE (10:00)
== END 2022-09-09 11:01 | disposition left against medical advice (07) | DRG 770 ==
LOC: YASAS 13:38 → Y3N 16:52
PROVIDERS: ADMIT Allergy & Immunology; ATTEND Surgery
PROC: HZ2ZZZZ Detoxification Services for Substance Abuse Treatment (ICD-10-PCS; principal; 2022-09-07)
DX: F11.23 Opioid dependence with withdrawal (principal); F10.230 Alcohol dependence with withdrawal, uncomplicated; F16.20 Hallucinogen dependence, uncomplicated; F17.210 Nicotine dependence, cigarettes, uncomplicated; F20.9 Schizophrenia, unspecified; F19.24 Other psychoactive substance dependence with psychoactive substance-induced mood disorder; F41.9 Anxiety disorder, unspecified; F32.A Depression, unspecified; Z21 Asymptomatic human immunodeficiency virus [HIV] infection status; G47.00 Insomnia, unspecified; M16.11 Unilateral primary osteoarthritis, right hip; Z86.19 Personal history of other infectious and parasitic diseases
CPT/HCPCS: 36415; 80053; 85027; 86780; 87811; C9803-CS; U0003; U0005

== ENCOUNTER 2022-10-18 14:55 | Inpatient (IN) | payer OTHER ==
[2022-10-18 17:16] VITALS: BMI 24.2
[2022-10-18] MEDS ORDERED: IBUPROFEN 600 MG TABLET (FP) PO PRN (22:50)
[2022-10-18] MEDS ORDERED: POLYETHYLENE GLYCOL (HEALTHYLAX) 3350 17 GM PACKET PO PRN (22:50)
[2022-10-18] MEDS ORDERED: LOPERAMIDE HCL 2 MG CAPSULE PO PRN (22:50)
[2022-10-18] MEDS ORDERED: BISMUTH SUBSALICYLATE 524 MG/30 ML PO PRN (22:50)
[2022-10-18] MEDS ORDERED: MAGNESIUM HYDROX 2400MG/30ML ORAL SUSPENSION 30 ML CUP PO PRN (22:50)
[2022-10-18] MEDS ORDERED: NALOXONE HCL (KLOXXADO) 8 MG SPRAY NS PRN (22:50)
[2022-10-18] MEDS ORDERED: BENZOCAINE/MENTHOL (CHLORASEPTIC ) LOZENGE MM PRN (22:50)
[2022-10-18] MEDS ORDERED: MAG HYDROX/AL HYDROX/SIMETH 30 ML UNIT-DOSE CUP PO PRN (22:50)
[2022-10-18] MEDS ORDERED: ONDANSETRON *ODT* 4 MG TABLET SL PRN (22:50)
[2022-10-18] MEDS ORDERED: NICOTINE POLACRILEX 2 MG GUM BUC PRN (22:50)
[2022-10-18] MEDS ORDERED: IBUPROFEN 400 MG TABLET (FP) PO PRN (22:50)
[2022-10-18] MEDS ORDERED: methaDONE HCL 10 MG TABLET (FOR DETOX USE ONLY) PO ONE (22:50)
[2022-10-18] MEDS ORDERED: DICYCLOMINE HCL 10 MG CAPSULE PO PRN (22:50)
[2022-10-18] MEDS ORDERED: ACETAMINOPHEN 325 MG TABLET (FP) PO PRN ×2 (22:50)
[2022-10-18] MEDS ORDERED: methaDONE HCL 10 MG TABLET (FOR DETOX USE ONLY) ONE (23:11)
[2022-10-19] MEDS: cloNIDine HCL 0.1 MG TABLET PO PRN ×4 (00:08→22:12)
[2022-10-19] MEDS: METHOCARBAMOL 500 MG TABLET PO PRN ×3 (00:10→22:12)
[2022-10-19] MEDS: NICOTINE 14 MG/24 HOURS TOPICAL PATCH TD SCH (10:08)
[2022-10-19] MEDS: PRENATAL VITAMINS W/ FOLIC ACID TABLET (FP) PO SCH (10:10)
[2022-10-19 21:16] VITALS: RESP 18
[2022-10-19] MEDS ORDERED: THIAMINE HCL 100 MG TABLET (FP) PO SCH (22:00)
[2022-10-19] MEDS ORDERED: MELATONIN 5 MG TABLETS PO SCH (22:00)
[2022-10-20] MEDS: METHOCARBAMOL 500 MG TABLET PO PRN (05:27)
[2022-10-20] MEDS: cloNIDine HCL 0.1 MG TABLET PO PRN (05:30)
[2022-10-20 09:32] VITALS: BP 136/77; PULSE 59; TEMP 97.3
[2022-10-20] MEDS ORDERED: methaDONE HCL 10 MG TABLET (FOR DETOX USE ONLY) PO ONE (10:00)
[2022-10-20] MEDS: NICOTINE 14 MG/24 HOURS TOPICAL PATCH TD SCH (10:40)
[2022-10-20] MEDS: PRENATAL VITAMINS W/ FOLIC ACID TABLET (FP) PO SCH (10:40)
[2022-10-20 11:29] LABS: HEMATOCRIT 42.5 % (35.4-49); HEMOGLOBIN 14.6 GM/dL (11.7-16.9); MCH 31.3 pg (25.7-33.7); MCHC 34.3 g/dl (32.0-35.9); MEAN CELL VOLUME 91.1 fl (80-96); MEAN PLT VOLUME 9.2 fl (7.5-11.1); PLATELET COUNT 198 10^3/uL (134-434); RBC 4.67 M/mm3 (4.00-5.60); RDW 14.8 % (11.9-15.9); WHITE BLOOD COUNT 6.3 K/mm3 (4.0-10.0)
[2022-10-22] MEDS ORDERED: methaDONE HCL 10 MG TABLET (FOR DETOX USE ONLY) PO ONE (10:00)
== END 2022-10-20 09:24 | disposition left against medical advice (07) | DRG 770 ==
LOC: YASAS 14:55 → Y3N 22:42
PROVIDERS: ADMIT Allergy & Immunology; ATTEND Allergy & Immunology
PROC: HZ2ZZZZ Detoxification Services for Substance Abuse Treatment (ICD-10-PCS; principal; 2022-10-18)
DX: F11.23 Opioid dependence with withdrawal (principal); F10.230 Alcohol dependence with withdrawal, uncomplicated; F16.90 Hallucinogen use, unspecified, uncomplicated; F17.210 Nicotine dependence, cigarettes, uncomplicated; F19.280 Other psychoactive substance dependence with psychoactive substance-induced anxiety disorder; F19.282 Other psychoactive substance dependence with psychoactive substance-induced sleep disorder; Z21 Asymptomatic human immunodeficiency virus [HIV] infection status; J45.909 Unspecified asthma, uncomplicated; M16.11 Unilateral primary osteoarthritis, right hip; Z86.19 Personal history of other infectious and parasitic diseases
CPT/HCPCS: 36415; 85027; 86780; 87811; C9803-CS; U0003; U0005